=== PATIENT | female | born 1965 | race Caucasian/White ===

== ENCOUNTER 2024-01-05 09:31 | Outpatient (CLI) | payer OTHER, SELFPAY ==
--- OUTSIDE RECORDS SUMMARY | 2024-01-05 09:42 | XMS_ITS | Clinical Summary ---
Author Organization [facility] Address [place], [place] [address] Care Team Providers Care Project Management Intern Name Role Phone [facility] - Primary Ca re Provider Allergies No known active allergies Medications Medication Sig Dispensed Refills Start Date End Date Status albuterol HFA (PRO-AIR,VENTOLIN,PROVEN TIL) 90 mcg/actuation inhaler Inhale 2 Puffs by mouth 4 times daily if needed. Active multivitamin (MVI) tabletIndications:vitami n deficiency prevention Take 1 tablet by mouth once daily. Indications: VITAMIN DEFICIENCY PREVENTION Active LORazepam (ATIVAN) 0.5 mg tab Take 0.5 mg by mouth every 8 hours if needed. Active DULoxetine (CYMBALTA) 30 mg Delayed-release capsuleIndications:gener alized anxiety disorder Take 60 mg by mouth once daily. Indications: Generalized Anxiety Disorder Active ondansetron (ZOFRAN, HYDROCHLORIDE,) 4 mg tablet Take 4 mg by mouth every 8 hours if needed for Nausea/Vomiting. Active linaclotide (LINZESS) 145 mcg cap capsuleIndications:const ipation predominant irritable bowel syndrome Take 145 mcg by mouth before breakfast. Indications: Constipation Predominant Irritable Bowel Syndrome Active HYDROcodone-acetaminophe n, 5-325 mg, (NORCO) per tabletIndications:Post-o p pain Take 1 to 2 tablets by mouth every 4 hours if needed for Pain Max acetaminophen dose: 4000 mg in 24 hrs. 45 tablet 7 Active ondansetron (ZOFRAN ODT) [address] 2 tablets on the tongue every 8 hours if needed. 20 tablet 1 7 Active lisinopril (PRINIVIL; ZESTRIL) 10 mg tablet Take 1 tablet by mouth once daily. 0 8 Active rosuvastatin (CRESTOR) 20 mg tabletIndications:Pure hypercholesterolemia TAKE ONE TABLET BY MOUTH ONCE DAILY AT BEDTIME 90 tablet 2 0 Active ondansetron (ZOFRAN ODT) 4 mg disintegrating tabletIndications:Nausea Place 1 Tablet (4 mg) on the tongue 2 times daily. 5 Tablet 1 Active Active Problems Problem Noted Date Diagnosed Date Pelvic kidney 05/11/2021 Branch retinal vein occlusio n with retinal neovascularization 10/23/2020 Vitreous hemorrhage 10/23/2020 Dyspnea on exertion 04/10/2018 Hyperlipidemia 04/10/2018 Mitral valve insufficiency 04/10/2018 Primary hypertension 04/10/2018 Tobacco dependence syndrome 04/10/2018 Acquired absence of both cervix and uterus 04/15 Overview: Extensive adenomyosis, multiple fibroids, largest 6.5 cm, benign cervix Fibroids, intramural 04/01/2014 Menorrhagia 03/25/2014 Social History Tobacco Use Types Packs/Day Years Used Date Smoking Tobacco: Light Smoker Cigarettes Last attempted t o quit: 03/12/2013 Smokeless Tobacco: Never Tobacco Cessation:Counseling Given: Yes Comments:Occasional Alcohol Use Standard Drinks/Week Comments No 0 (1 standard drink = 0.6 oz pur e alcohol) 0-1 per year Sex and Gender Information Value Date Recorded Sex Assigned at Not on file Gender Identity Not on file Sexual Orientation Not on file Obstetrics History Last Filed Vital Signs Vital Sign Reading Time Taken Comments Blood Pressure 149/65 05/14/2021 6:00 PM CREATIVE SERVICES PRODUCER Pulse 91 05/14/2021 6:00 PM CREATIVE SERVICES PRODUCER Temperature 36.7 ??C (98 ??F) 05/14/2021 4:40 PM CRE[employer]IVE SERVICES PRODUCER Respiratory Rate 18 05/14/2021 4:40 PM CREATIVE SERVICES PRODUCER Oxygen Saturation 97% 05/14/2021 6:00 PM CREATIVE SERVICES PRODUCER Inhaled Oxygen Concentration - - Weight 61.2 kg (135 lb) 05/14/2021 4:40 PM CREATIVE SERVICES PRODUCER Height 175.3 cm (5' 9) 05/14/2021 4:40 PM CREATIVE SERVICES PRODUCER Body Mass Index 19.94 05/14/2021 4:40 PM CREATIVE SERVICES PRODUCER Plan of Treatment Health Maintenance Due Date Last Done Comments Tdap 1977 Depression screening for age 12+ 1978 HIV for age 15-65 1981 Hepatitis C screening for ag e 18-79 1984 Tetanus booster 1986 Pap test for age 21-65 1987 Colonoscopy through age 75 2011 Lipids for age 45-75 2011 Mammogram for age 45-75 2011 Zoster (shingles) series for age 50+ (1 of 2) 2016 BMI (ht and wt on same day) for age 18+ 06/28/2017 06/28/2016 COVID-19 vaccine series (2022- season) 2023 04/09/2021 Influenza for age 50-64 02/11/2024 Pneumococcal series for age 6-64 Aged Out No longer eligible based on patient's age to complete this topic Medical Devices Implanted Type Area Sap Payroll Consultant Device Identifier Shelf Expiration Date Model / Serial / Lot Stent Ent Mini Steroid-Releas ing Propel Bioabsorb - [id number] Implanted:Qty: 3 on 07/22/2016 by Yonatan Crum MD at [facility] Left: [employer] 02/25/2018 [id number]# / / [id number] Description:Left frontal and left maxillary Stent Ent Mini Steroid-Releas ing [employer]orb - [id number] Implanted:Qty: 1 on 07/22/2016 by Yonatan Crum MD at [facility] Left: [employer] 11/15/2017 [id number]# / / [id number] Stent Ent Reg Steroid-Releas ing Propel Bio[employer]orb - [id number] Implanted:Qty: 1 on 07/22/2016 by Yonatan Crum MD at [facility] Left: [employer] 11/09/2017 [id number]# / / [id number] Stent Ent Mini Steroid-Releas ing Propel Bio[employer]orb - [id number] Implanted:Qty: 1 on 07/22/2016 by Yonatan Crum MD at [facility] Right: [employer] 02/25/2018 [id number]# / / [id number] Stent Ent Reg Steroid-Releas ing Propel Bio[employer]orb - [id number] Implanted:Qty: 1 on 07/22/2016 by Yonatan Crum MD at [facility] Right: [employer] 11/09/2017 [id number]# / / [id number] Explanted Type Area Sap Payroll Consultant Device Identifier Shelf Expiration Date Model / Serial / Lot Stent Ent Mini Steroid-Releas ing Propel Bio[employer]orb - [id number] Implanted:Qty: 1 Explanted:Qty: 1 on 07/22/2016 at [facility] Right: [employer] 01/19/2018 [id number]# / / [id number] Advance Directives * Full Code (Latest Code Status on File) Date Activated Date Inactivated Comments 07/22/2016 9:46 AM 07/22/2016 10:46 AM * Full Code Date Activated Date Inactivated Comments 01/01/2015 10:15 AM 01/01/2015 3:12 PM * Full Code Date Activated Date Inactivated Comments 04/01/2014 8:31 AM 04/02/2014 1:42 PM * Full Code Date Activated Date Inactivated Comments 08/30/2013 9:12 AM 08/30/2013 3:47 PM Care Teams Project Management Intern Relationship Specialty Start Date End Date [facility] - PCP - General 05/11/21
--- OUTSIDE RECORDS SUMMARY | 2024-01-05 09:43 | XMS_ITS | Clinical Summary ---
Author Organization [facility] Address [address] [place] [address] Care Team Providers Care Metal Model Maker Name Role Phone Elsewhere, Pcp Primary Care Provider Unavailabl e Source Comments Patient records contain information from all sites at [facility]. For routine questions regarding patient records, call [phone] during business hours, M-F 8:00 AM - 5:00 PM Central Time. Record requests for emergency care only can be directed to [phone] at any time.[facility] Allergies No known active allergies Medications Medication Sig Dispensed Refills Start Date End Date Status diazePAM (VALIUM) 2 mg tablet Take 2 mg by mouth as needed. 2 03/15/2018 Active multivitamin tablet Take 1 tablet by mouth daily. 09/16/2013 Active ondansetron (ZOFRAN) 4 mg tablet Take 4 mg by mouth every 6 (six) hours as needed. 1 02/16/2018 Active oxyCODONE-acetamino phen (PERCOCET) 5-325 mg per tablet Take 5-325 tablets by mouth every 4 (four) hours as needed. for pain 0 03/09/2018 Active rosuvastatin (CRESTOR) 20 mg tablet Take 20 mg by mouth daily. 03/16/2018 Active DULoxetine (CYMBALTA) [address] capsule TAKE ONE CAPSULE BY MOUTH ONCE DAILY 90 capsule 3 06/18/2018 Active albuterol 90 mcg/actuation inhaler Inhale 2 puffs 4 (four) times a day as needed for shortness of breath. Active naloxegoL (MOVANTIK) 12.5 mg tablet Take 1 tablet by mouth daily as needed. Active nortriptyline (PAMELOR) 10 mg capsule Take 1-2 capsules by mouth at bedtime. 04/15/2021 Active pregabalin (LYRICA) 75 mg capsule Take 1-2 capsules by mouth 2 (two) times a day. 03/30/2021 Active QUEtiapine (SEROquel) 25 mg tablet Take 25-50 mg by mouth at bedtime as needed. 03/30/2021 Active aspirin 81 mg chewable tablet Chew 81 mg daily. Ac tive mineral oil enema Insert 1 enema into the rectum as needed for constipation. 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 Dyspnea On Exertion 04/10/2018 Nonrheumatic Mitral Valve Insufficiency 04/10/20 18 Hyperlipidemia 04/10/2018 Hypertension Essential Primary 04/10/2018 Abuse Tobacco Smoking 04/10/2018 Hysterectomy Status Post 04/15/2014 Overview (04/10/2018): Extensive adenomyosis, multiple fibroids, largest 6.5 cm, benign cervix Acquired Absence Of Both Cervix And Uterus 04/15 Overview (11/03/2021): Extensive adenomyosis, multiple fibroids, largest 6.5 cm, benign cervix Hemorrhage Vitreous Left Encounters Date Type Department Care Team Description 11/28/2023 2:00 PM CDT - 11/28/2023 11:59 PM CDT Hospital Encounter Department of Radiology in [place], [place] [address] [place] [address] Hudson Boyle Jr., M.D. 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) (Primary Dx); Hemorrhage Vitreous Left (HCC) from Last 3 Months Immunizations Name Administration Dates Next Due SARS-COV-2 (COVID-19) - PFIZ ER (Discontinued)(12 years or older) 01/22/2021 Family History Medical History Relation Name Comments Crohn's disease Daughter Glaucoma Father Heart attack Father Hypertension Father Stroke Father Heart attack Mother Lung cancer Mother Pulmonary fibrosis Mother Rheum arthritis Mother Breast cancer Sister Cerebral palsy Son Relation Name Status Comments Daughter Father Mother Sister Son Social History Tobacco Use Types Packs/Day Years Used Date Smoking Tobacco: Some Days Cigarettes Smokeless Tobacco: Never Tobacco Cessation:Ready to Q uit: Not Asked; Counseling Given: Not Answered Alcohol Use Standard Drinks/Week Comments Yes 0 (1 standard drink = 0.6 oz pur e alcohol) rare Humiliation, Afraid, Rape, and Kick questionnair e Answer Date Recorded Within the last year, have y ou been afraid of your partner or ex-partner? No 12/20/2021 Within the last year, have y ou been humiliated or emotionally abused in other ways by your partner or ex-partner? No Within the last year, have y ou been kicked, hit, slapped, or otherwise physically hurt by your partner or ex-partner? No 12/20/2021 Within the last year, have y ou been raped or forced to have any kind of sexual activity by your partner or ex-partner? No 12/20/2021 Social Connection and Isolat ion Panel [NHANES] Answer Date Recorded In a typical week, how many times do you talk on the phone with family, friends, or neighbors? More than three times a week 12/20/2021 How often do you get togethe r with friends or relatives? Three times a week 12/20/2021 How often do you attend chur or jewish services? Never 12/20/2021 Do you belong to any clubs o r organizations such as evangelical groups, unions, fraternal or athletic groups, or school groups? No 12/20/2021 How often do you attend meet ings of the clubs or organizations you belong to? Never 12/20/2021 Are you , , di vorced, , never , or living with a partner? 12/20/2021 AUDIT-C Answer Date Recorded Q1: How often do you have a drink containing alc ohol? Monthly or less 12/20/2021 Q2: How many drinks containi ng alcohol do you have on a typical day when you are drinking? 1 or 2 12/20/2021 Q3: How often do you have si x or more drinks on one occasion? Never 12/20/2021 Overall Financial Resource Strain (CARDIA) Answe r Date Recorded How hard is it for you to pa y for the very basics like food, housing, medical care, and heating? Somewhat hard 12/20/2021 PHQ-2 Answer Date Recorded PHQ-2 Score 2 12/20/2021 [facility] - Occupational Stress Questionnaire Answer Date Recorded Do you feel stress - tense, restless, nervous, or anxious, or unable to sleep at night because your mind is troubled all the time - these days? To some extent 12/20/2021 Exercise Vital Sign Answer Date Recorde d On average, how many days pe r week do you engage in moderate to strenuous exercise (like a brisk walk)? 0 days 12/20/2021 On average, how many minutes do you engage in exercise at this level? 0 min 12/20/2021 Hunger Vital Sign Answer Date Recorded Within the past 12 months, y ou worried that your food would run out before you got the money to buy more. Never true 12/21/19 22 Within the past 12 months, t he food you bought just didn't last and you didn't have money to get more. Never true 12/20/2021 PRAPARE - Transportation Answer Date Re corded In the past 12 months, has l ack of transportation kept you from medical appointments or from getting medications? No 12/10 In the past 12 months, has l ack of transportation kept you from meetings, work, or from getting things needed for daily living? No 12/20/2021 Housing Stability Vital Sign Answer Mohan e Recorded In the last 12 months, was t here a time when you were not able to pay the mortgage or rent on time? Yes 12/20/2021 In the last 12 months, how many places have you lived? 1 12/20/2021 In the last 12 months, was t here a time when you did not have a steady place to sleep or slept in a long-term (including now)? No 12/20/2021 Nutrition Answer Date Recorded On average, how many serving s of fruits and vegetables do you eat per day (serving size is equal to 1 cup or approximately the size of a tennis ball)? 2-3 12/20/2021 Dental Answer Date Recorded Dental: Regular Dentist Yes 12/21/19 Employment Answer Date Recorded Employment status Employed but not working due t o illness or injury 12/20/2021 Education Answer Date Recorded What is the highest level of school you have completed or the highest degree you have received? Bachelor's degree (e.g., BA, AB, BS) 11/18/2020 Sex and Gender Information Value Date Recorded Sex Assigned at Female 12/20/2021 10:36 AM CDT Gender Identity Female 12/20/2021 10:36 AM CDT Sexual Orientation Straight 12/20/2021 10 :36 AM CDT Last Filed Vital Signs Vital Sign Reading Time Taken Comments Blood Pressure 128/88 12/28/2021 12:49 PM CDT Pulse 76 12/22/2021 11:10 AM CDT Temperature 37.1 ??C (98.8 ??F) 12/14/2021 1 1:58 AM CDT Respiratory Rate 20 09/13/2016 7:51 AM CDT Oxygen Saturation 98% 12/28/2021 12: 49 PM CDT Inhaled Oxygen Concentration - - Weight 57.6 kg (126 lb 15.8 oz) 022 11:07 AM CDT Height 175.2 cm (5' 8.98) 12/28/2021 1 2:49 PM CDT Body Mass Index 18.77 12/14/2021 11:58 AM CDT Plan of Treatment Health Maintenance Due Date Last Done Comments CT Colonography 1966 Cologuard 1966 FIT 1966 HIV Screening 1966 Hepatitis C Screening 1966 Office Visit for Blood Press ure Check / Re-check 1966 Tobacco Cessation counseling 1966 Pneumococcal vaccine (0-64 y ears) (1 of 2 - PCV) 1972 DTaP,Tdap,and Td Vaccines (1 - Tdap) 1985 Hepatitis B Vaccines (1 of 3 - 19+ 3-dose series) 1985 Zoster Vaccines (1 of 2) 2016 Mammogram 03/07/2017 03/07/2016, 04/02/2015, 06/28/2012, Additional history exists Creatinine Level (Kidney Fun ction Test) 11/03/2022 11/03/2021, 05/11/2021, 12/04/2017, Additional history exists Potassium Level 11/03/2022 11/03/2021, 04/14, 12/04/2017, Additional history exists Sodium Level 11/03/2022 11/03/2021, 04/14, 12/04/2017, Additional history exists Lipid (Cholesterol) Screening 12/29/2022 12/29/2017, 03/11/2016 COVID-19 Vaccine (3 - 2022-2 4 season) 2023 04/09/2021, 01/22/2021 Depression Screening (Annual PHQ-2) 06/12/2023 Colonoscopy 08/31/2023 08/30/2013 Colorectal Cancer Screening 08/31/2023 Influenza Vaccine (#1) 2024 Fasting Glucose for Diabetes Screening 11/03/2024 11/03/2021, 05/11/2021, 03/11/2016, Additional history exists Procedures Procedure Name Priority Date/Time Associated Diagnosis Comments US CAROTID BILATERAL RAD - Routine (most inpatients and all outpatients) 11/28/2023 3:22 PM CDT 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 Left: Mild, 0-49%, ICA stenosis. Heart beats at irregular intervals suggesting underlying arrhythmia, consider correlation with EKG. Narrative 11/28/2023 4:38 PM CDT EXAM: US CAROTID BILATERAL Exam performed with color and spectral Doppler analysis. COMPARISON: November 24, 2021 FINDINGS: RIGHT: Mild atheromatous plaque in the carotid bifurcation. Doppler evaluation shows no evidence of significant ICA, ECA, or CCA stenosis. Normal flow direction in the vertebral artery. LEFT: Mild atheromatous plaque in the carotid bifurcation. Doppler evaluation shows no evidence of significant ICA, ECA, or CCA stenosis. Normal flow direction in the vertebral artery. VELOCITIES (cm/sec) Right CCA *psv: 68 cm/s Right ICA psv: 83 cm/s Right ICA edv: 33 cm/s Right ECA psv: 84 cm/s Right ICA/CCA: 1.2 Left CCA *psv: 64 cm/s Left ICA psv: 70 cm/s Left ICA edv: ??32 cm/s Left ECA psv: ??84 cm/s Left ICA/CCA: 1.1 *mid/distal (non-diseased) Measurement of a carotid stenosis, if present, is based on velocity parameters that compare the residual internal carotid luminal diameter with that of the normal distal ICA in accordance with [place] Symptomatic Carotid Endarterectomy Trial (NASCET). Procedure Note Grady Bueno M.D. - 11/28/2023 EXAM: US CAROTID BILATERAL Exam performed with color and spectral Doppler analysis. COMPARISON: November 24, 2021 FINDINGS: RIGHT: Mild atheromatous plaque in the carotid bifurcation. Dopplerevaluation shows no evidence of significant ICA, ECA, or CCA stenosis.Normal flow direction in the vertebral artery. LEFT: Mild atheromatous plaque in the carotid bifurcation. Dopplerevaluation shows no evidence of significant ICA, ECA, or CCA stenosis.Normal flow direction in the vertebral artery. VELOCITIES (cm/sec) Right CCA *psv: 68 cm/s Right ICA psv: 83 cm/s Right ICA edv: 33 cm/s Right ECA psv: 84 cm/s Right ICA/CCA: 1.2 Left CCA *psv: 64 cm/s Left ICA psv: 70 cm/s Left ICA edv: 32 cm/s Left ECA psv: 84 cm/s Left ICA/CCA: 1.1 *mid/distal (non-diseased) Measurement of a carotid stenosis, if present, is based on velocityparameters that compare the residual internal carotid luminal diameterwith that of the normal distal ICA in accordance with [place] AmericanSymptomatic Carotid Endarterectomy Trial (NASCET). IMPRESSION: Right: Mild, 0-49%, ICA stenosis. Left: Mild, 0-49%, ICA stenosis. Heart beats at irregular intervals suggesting underlying arrhythmia,consider correlation with EKG. Hudson Boyle Jr., M.D. IMG US PROCEDUR ES * (ABNORMAL) Comprehensive Metabolic Panel (11/03/2021 12:36 PM CDT) Potassium, P 4.8 3.6 - 5.2 mmol/L 11/03/2021 1:06 PM CDT OWAT Sodium, P 142 135 - 145 mmol/L 11/03/2021 1:06 PM CDT OWAT Chloride, P 104 98 - 107 mmol/L 11/03/2021 1:06 PM CDT OWAT Bicarbonate, P 28 22 - 29 mmol/L 11/03/2021 1:06 PM CDT OW[facility] Anion Gap, P 10 7 - 15 11/03/2021 1:06 PM CDT OWAT BUN (Blood Urea Nitrogen), P 22(H) 6 - 21 mg/dL 11/03/2021 1:06 PM CDT OWAT Creatinine 0.81 0.59 - 1.04 mg/dL 11/03/2021 1:06 PM CDT OWAT eGFR-Black/ >90 >=60 mL/min/BS A 11/03/2021 1:06 PM CDT OWAT Comment: ----ADDITIONAL INFORMATION---- Estimated GFR calculated using the 2009 CKD_EPI creatinine equation. eGFR Non-Black/ 82 >=60 mL/min/BS A 11/03/2021 1:06 PM CDT OWAT Comment: ----ADDITIONAL INFORMATION---- Estimated GFR calculated using the 2009 CKD_EPI creatinine equation. Calcium, Total, P 10.4(H) 8.6 - 10.0 mg/dL 11/03/2021 1:06 PM CDT OWAT Glucose, P 108 70 - 140 mg/dL 11/03/2021 1:06 PM CDT OWAT Protein, Total, P 7.1 6.3 - 7.9 g/dL 11/03/2021 1:06 PM CDT OWAT Albumin, P 4.5 3.5 - 5.0 g/dL 11/03/2021 1:06 PM CDT OWAT Aspartate Aminotransferase (AST), P 16 8 - 43 U/L 11/03/2021 1:06 PM CDT OWAT Alkaline Phosphatase, P 61 35 - 104 U/L 11/03/2021 1:06 PM CDT OWAT Alanine Aminotransferase (ALT), P 11 7 - 45 U/L 11/03/2021 1:06 PM CDT OWAT Bilirubin, Total, P 0.3 <=1.2 mg/dL 11/03/2021 1:06 PM CDT OWAT Blood (Blood, Venous) 11/03/2021 12:36 PM CDT 11/03/2021 12:40 PM CDT Roshni Burroughs APRN C.N.PVarinder LAB BLOOD A DD-ON [facility] [address] [place] [address], [place] OW[facility] [place] [address] [place] [address] * (ABNORMAL) Lipid Panel (12/29/2017) Triglycerides 229(A) 40 - 160 [employer]INTENAN[employer] CONSULTANT AL NON-INTERFACE D LAB Cholesterol, Total 251(A) 0 - 200 E XTERNAL NON-INTERFACE D LAB Cholesterol, HDL, S 43 35 - 70 EXTERNAL NON-INTERFACE D LAB LDL Cholesterol 162 EXTE RNAL NON-INTERFACE D LAB Blood (Blood, Venous) Ordering Provider External M.DVarinder LAB BLOO D NON ADD-ON EXTERNAL NON-INTERFACED LAB [address] [place] [address] * BI Breast Screening Bilateral (03/07/2016 2:28 PM CDT) Anatomical Region Laterality Modality Breast Bilateral Mammography 03/07/2016 2:28 PM CDT Addenda Addendum by ProviderJared M.D. on 03/07/2016 2:28 PM CDT RAD^^^OW [place] Mammo Self Requested w ??CADD 03/07/2016 14:28:01 Impressions 03/07/2016 3:50 PM CDT Negative. No mammographic findings of malignancy. RECOMMENDATIONS: Annual screening mammography. BI-RADS ASSESSMENT: CODE: 1-NEGATIVE Full field digital mammography is used and Computer Aided Detection is performed on the digital mammogram images. LETTER SENT: L1/2 - negative screen, dense breasts Narrative 03/07/2016 3:50 PM CDT EXAM: [place] Mammo Self Requested w/ CADD INDICATION: Screening. COMPARISON: Prior examination(s) are available for comparison. DENSITY: c. The breast(s) are heterogeneously dense, which may obscure small masses. FINDINGS: No findings of malignancy. No significant change since prior exams. Procedure Note Rosalva Quijano M.D. / ProviderJared M.D. - 10/15/2016 EXAM: [place] Mammo Self Requested w/ CADD INDICATION: Screening. COMPARISON: Prior examination(s) are available for comparison. DENSITY: c. The breast(s) are heterogeneously dense, which may obscure small masses. FINDINGS: No findings of malignancy. No significant change since prior exams. IMPRESSION: Negative. No mammographic findings of malignancy. RECOMMENDATIONS: Annual screening mammography. BI-RADS ASSESSMENT: CODE: 1-NEGATIVE Full field digital mammography is used and Computer Aided Detection is performed on the digital mammogram images. LETTER SENT: L1/2 - negative screen, dense breasts Yessi Huynh(R), RTariq(R)(M) IMG BI PROCEDURES from Last 3 Months or Most Recently Relevant to Health Maintenance Care Teams Metal Model Maker Relationship Specialty Start Date End Date Elsewhere, Pcp PCP - General Internal Medicine 09/25/18
--- OUTSIDE RECORDS SUMMARY | 2024-01-05 09:43 | XMS_ITS ---
Author Organization [facility] Address [address] [place] [address] Care Team Providers Care University Teacher Name Role Phone Unavailable Unavailable Unavailable Surgery Details Not on file Complications Check Surgery Details section. Procedure Estimated Blood Loss Check Surgery Details section. Procedure Findings Check Surgery Details section. Procedure Specimens Taken Check Surgery Details section.
--- OUTSIDE RECORDS SUMMARY | 2024-01-05 09:43 | XMS_ITS | Encounter Summary ---
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 [address] [place] [address] [facility] Region Referral ID Status Reason Start Date Expiration Date Visits Re quested Visits Authorized [id number] Closed 11/27/2023 11/26/2024 1 1 Encounter Details Date Type Department Care Team (Latest Contact Info) Description 11/28/2023 2:00 PM CDT - 11/28/2023 11:59 PM CDT Hospital Encounter Department of Radiology in [place], [place] [address] [place] [address] Hudson Boyle Jr., M.D. 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 Never 12/20/2021 Do you belong to any clubs o r organizations such as latter-day groups, unions, fraternal or athletic groups, or [...] Answer Date Recorded PHQ-2 Score 2 12/20/2021 [facility] - [...] place to sleep or slept in a retirement (including now)? No 12/20/2021 Nutrition Answer Date [...] Orientation Straight 12/20/2021 10 :36 AM CDT documented as of this encounter Medications at Time of Discharge Medication Sig Dispensed Refills Start Date End Date albuterol 90 mcg/actuation inhaler Inhale 2 puffs 4 (four) times a day as needed for shortness of breath. aspirin 81 mg chewable tablet Chew 81 mg daily. diazePAM (VALIUM) 2 mg tablet Take 2 mg by mouth as needed. 2 03/15/2018 DULoxetine (CYMBALTA) [address] capsule TAKE ONE CAPSULE BY MOUTH ONCE DAILY 90 capsule 3 06/18/2018 lisinopriL (PRINIVIL,ZESTRIL) 2.5 mg tablet TAKE ONE TABLET BY MOUTH ONCE DAILY 90 tablet 06/20/2022 mineral oil enema Insert 1 enema into the rectum as needed for constipation. multivitamin tablet Take 1 tablet by mouth daily. 09/16/2013 naloxegoL (MOVANTIK) 12.5 mg tablet Take 1 tablet by mouth daily as needed. nortriptyline (PAMELOR) 10 mg capsule Take 1-2 capsules by mouth at bedtime. 04/15/2021 ondansetron (ZOFRAN) 4 mg tablet Take 4 mg by mouth every 6 (six) hours as needed. 1 02/16/2018 oxyCODONE-acetaminophen (PERCOCET) 5-325 mg per tablet Take 5-325 tablets by mouth every 4 (four) hours as needed. for pain 0 03/09/2018 pregabalin (LYRICA) 75 mg capsule Take 1-2 capsules by mouth 2 (two) times a day. 03/30/2021 QUEtiapine (SEROquel) 25 mg tablet Take 25-50 mg by mouth at bedtime as needed. 03/30/2021 rosuvastatin (CRESTOR) 20 mg tablet Take 20 mg by mouth daily. 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 Procedure Note [...] Boyle Jr., M.D. 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
--- OUTSIDE RECORDS SUMMARY | 2024-01-05 09:43 | XMS_ITS | Continuity of Care Document ---
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 Name Role Phone Herrera Gustabo CRUZel Unavailable Unavailable Allergies, Adverse Reactions, Alerts Substance Reaction Status Criticality pollen extracts Active No Informati on Medications Medication Instructions Dosage Effective Dates (start - stop) Status Comments Percocet 5 mg-325 mg tablet take 1 tablet by ORAL route every 4 - 6 hours as needed for chronic pain; max 6/day for for chronic pain - Active May fill today QUETIAPINE FUMARATE 25MG TABS TAKE ONE TO TWO TABLETS BY MOUTH AT BEDTIME - Active CO Q-10 (unknown strength) Not Available - Active lisinopril 10 mg tablet take 1 tablet by oral route every day 10 MG - Active Cymbalta 30 mg capsule,delayed release take 1 capsule by oral route every day 30 MG - Active rosuvastatin 20 mg tablet take 1 tablet by oral route every day 20 MG - Active diazepam 2 mg tablet take 1 tablet by oral route 2 times every day 2 MG - Active Lyrica 75 mg capsule take 1 capsule by oral route 2 times every day 75 MG - Active aspirin 81 mg chewable tablet chew 1 tablet by oral route every day 81 MG - Active ondansetron HCl 4 mg tablet take 1 tablet by oral route every day as needed 4 MG - Active Percocet 5 mg-325 mg tablet take 1 - 2 tablet by ORAL route every 4 - 6 hours as needed for chronic pain; max 6/day - Maximilian-19-2024 No Longer Active Supplemental Rx Procedures Procedure Date OFFICE VISIT, EST TELEMEDICINE OFFICE VISIT, EST TELEMEDICINE OFFICE/OUTPATIENT VISIT, EST Drug Urine Toxology With Chromatography Drug test def 1-7 classes OFFICE VISIT, EST TELEMEDICINE OFFICE VISIT, EST TELEMEDICINE OFFICE/OUTPATIENT VISIT, EST Drug test def 8-14 classes Drug Urine Toxology With Chromatography OFFICE VISIT, EST TELEMEDICINE OFFICE VISIT, EST TELEMEDICINE Drug Urine Toxology With Chromatography Drug test def 8-14 classes OFFICE/OUTPATIENT VISIT, EST OFFICE VISIT, EST TELEMEDICINE OFFICE VISIT, EST TELEMEDICINE OFFICE VISIT, EST TELEMEDICINE Drug Urine Toxology With Chromatography Drug test def 8-14 classes OFFICE/OUTPATIENT VISIT, EST OFFICE VISIT, EST TELEMEDICINE Foll-up eval q3mo opiod tx OFFICE VISIT, EST TELEMEDICINE Drug test def 8-14 classes Drug Urine Toxology With Chromatography Foll-up eval q3mo opiod tx OFFICE/OUTPATIENT VISIT, EST Foll-up eval q3mo opiod tx OFFICE VISIT, EST TELEMEDICINE Foll-up eval q3mo opiod tx OFFICE VISIT, EST TELEMEDICINE Drug Urine Toxology With Chromatography Drug test def 8-14 classes Foll-up eval q3mo opiod tx OFFICE/OUTPATIENT VISIT, EST Foll-up eval q3mo opiod tx OFFICE VISIT, EST TELEMEDICINE Foll-up eval q3mo opiod tx OFFICE VISIT, EST TELEMEDICINE Foll-up eval q3mo opiod tx OFFICE VISIT, EST TELEMEDICINE OFFICE VISIT, EST TELEMEDICINE Foll-up eval q3mo opiod tx OFFICE/OUTPATIENT VISIT, EST Drug Urine Toxology With Chromatography Drug test def 8-14 classes Foll-up eval q3mo opiod tx OFFICE VISIT, EST TELEMEDICINE Foll-up eval q3mo opiod tx OFFICE VISIT, EST TELEMEDICINE Foll-up eval q3mo opiod tx OFFICE VISIT, EST TELEMEDICINE Foll-up eval q3mo opiod tx OFFICE VISIT, EST TELEMEDICINE Foll-up eval q3mo opiod tx OFFICE VISIT, EST TELEMEDICINE Foll-up eval q3mo opiod tx OFFICE VISIT, EST TELEMEDICINE Foll-up eval q3mo opiod tx OFFICE VISIT, EST TELEMEDICINE Foll-up eval q3mo opiod tx OFFICE VISIT, EST TELEMEDICINE Foll-up eval q3mo opiod tx OFFICE VISIT, EST TELEMEDICINE OFFICE/OUTPATIENT VISIT, EST Foll-up eval q3mo opiod tx OFFICE VISIT, EST TELEMEDICINE Foll-up eval q3mo opiod tx OFFICE VISIT, EST TELEMEDICINE Disabilty Reports Forms Foll-up eval q3mo opiod tx OFFICE/OUTPATIENT VISIT, EST Drug Urine Toxology With Chromatography Drug test def 8-14 classes Foll-up eval q3mo opiod tx OFFICE/OUTPATIENT VISIT, EST Drug Urine Toxology With Chromatography Drug test def 1-7 classes Foll-up eval q3mo opiod tx OFFICE/OUTPATIENT VISIT, EST Foll-up eval q3mo opiod tx OFFICE/OUTPATIENT VISIT, EST Foll-up eval q3mo opiod tx OFFICE/OUTPATIENT VISIT, EST Drug Urine Toxology With Chromatography OFFICE/OUTPATIENT VISIT, EST Foll-up eval q3mo opiod tx OFFICE VISIT, EST TELEMEDICINE 21 PT EVAL MOD COMPLEX 30 MIN SELF CARE MNGMENT TRAINING Psych Dx Eval OFFICE VISIT, EST TELEMEDICINE Foll-up eval q3mo opiod tx Foll-up eval q3mo opiod tx OFFICE VISIT, EST TELEMEDICINE OFFICE VISIT, EST TELEMEDICINE 21 Foll-up eval q3mo opiod tx Foll-up eval q3mo opiod tx OFFICE VISIT, EST TELEMEDICINE 21 OFFICE VISIT, EST TELEMEDICINE 21 Foll-up eval q3mo opiod tx OFFICE VISIT, EST TELEMEDICINE 20 Foll-up eval q3mo opiod tx OFFICE VISIT, EST TELEMEDICINE 20 Foll-up eval q3mo opiod tx Foll-up eval q3mo opiod tx OFFICE VISIT, EST TELEMEDICINE OFFICE VISIT, EST TELEMEDICINE 20 Foll-up eval q3mo opiod tx OFFICE VISIT, EST TELEMEDICINE 20 Foll-up eval q3mo opiod tx OFFICE VISIT, EST TELEMEDICINE 20 Foll-up eval q3mo opiod tx Foll-up eval q3mo opiod tx OFFICE VISIT, EST TELEMEDICINE Foll-up eval q3mo opiod tx OFFICE VISIT, EST TELEMEDICINE Foll-up eval q3mo opiod tx OFFICE VISIT, EST TELEMEDICINE Foll-up eval q3mo opiod tx OFFICE VISIT, EST TELEMEDICINE Foll-up eval q3mo opiod tx OFFICE/OUTPATIENT VISIT, EST Foll-up eval q3mo opiod tx OFFICE/OUTPATIENT VISIT, EST OFFICE/OUTPATIENT VISIT, EST Foll-up eval q3mo opiod tx OFFICE/OUTPATIENT VISIT, EST Foll-up eval q3mo opiod tx OFFICE/OUTPATIENT VISIT, EST OFFICE/OUTPATIENT VISIT, EST Drug test def 22+ classes Drug Urine Toxology With Chromatography PT-FOCUSED HLTH RISK ASSMT OFFICE CONSULTATION Drug test def 22+ classes Drug Urine Toxology With Chromatography Advance Directives Directive Yes / No Effective Date File Name No Information Encounters Encounter Description Practice Location Reason(s) For Visit Diagnoses Date Provider Providers Copied on Encounter [facility], [address] [place] [address], [id number] , [place] tel:[phone] [facility] [place] No Information 4 Herrerajuan Baird. [address] [facility] [address], [id number], [place]. tel:[phone] [facility], [address] [place], [place], [id number] , [place] tel:[phone] Telehealth No Information 4 Sharon Baird. [address] [facility] [address] [address], [id number], [place]. tel:[phone] OFFICE VISIT, EST TELEMEDICINE [facility], [address] [place], [place], [id number] , [place] tel:[phone] [facility] Neck Pain (chief complaint) Insomnia, unspecifiedChr onic pain syndromeRadicu lopathy, cervical regionPostlami nectomy syndrome, not elsewhere classifiedLong term (current) use of opiate analgesic 4 Herrerajuan Baird. [address] [place] [address] [address], [place], [id number], [place]. tel:[phone] OFFICE VISIT, [facility] TELEMEDICINE [facility], [address] [place] [address], [id number] , [place] tel:[phone] [facility] Neck Pain (chief complaint) Insomnia, unspecifiedChr onic pain syndromeRadicu lopathy, cervical regionPostlami nectomy syndrome, not elsewhere classifiedLong term (current) use of opiate analgesic 4 Herrera Oli. [address] [place] [address] [address], [place], [id number], [place]. tel:[phone] Referring Provider: Ortiz Lambert, [address] [place] [address], [id number]. tel:[phone] OFFICE/OUTPAT IENT VISIT, [facility], [address] [place] [address], [id number] , [place] [phone] [facility] Neck Pain (chief complaint) Insomnia, unspecifiedChr onic pain syndromeRadicu lopathy, cervical regionPostlami nectomy syndrome, not elsewhere classifiedLong term (current) use of opiate analgesicEncou nter for therapeutic drug level monitoring 4 Sharon Baird. [address] [place] [address] [address], [place], [id number], [place]. tel:[phone] Referring Provider: Ortiz Lambert, [address] [place] [address], [id number]. tel:[phone] OFFICE VISIT, [facility], [address] [place] [address], [id number] , [place] tel:[phone] [facility] Insomnia, unspecifiedChr onic pain syndromeRadicu lopathy, cervical regionPostlami nectomy syndrome, not elsewhere classifiedLong term (current) use of opiate analgesic 4 Sharon Baird. [address], [id number], [place]. tel:[phone] OFFICE VISIT, EST TELEMEDICINE [facility], [address] [place] [address], [id number] , [place] tel:[phone] [facility] Neck Pain (chief complaint) Insomnia, unspecifiedChr onic pain syndromeRadicu lopathy, cervical regionPostlami nectomy syndrome, not elsewhere classifiedLong term (current) use of opiate analgesic 4 Sharon Baird. [address] [place] [address], [id number], [place]. tel:[phone] OFFICE/OUTPAT IENT VISIT, [facility], [address] [place] [address], [id number] , [place] tel:[phone] [facility] Neck Pain (chief complaint) Insomnia, unspecifiedChr onic pain syndromeRadicu lopathy, cervical regionPostlami nectomy syndrome, not elsewhere classifiedLong term (current) use of opiate analgesicEncou nter for therapeutic drug level monitoring 4 Herrera Oli. [address] [place] [address], [id number], [place]. tel:[phone] Referring Provider: Ortiz Lambert, [address] [place] [address], [id number]. tel:[phone] OFFICE VISIT, EST TELEMEDICINE [facility], [address] [place] [address], [id number] , [place] [phone] [facility] Neck Pain (chief complaint) Insomnia, unspecifiedChr onic pain syndromeRadicu lopathy, cervical regionPostlami nectomy syndrome, not elsewhere classifiedLong term (current) use of opiate analgesic 3 Sharon Baird. [address] [place] [address], [id number], [place]. tel:[phone] OFFICE VISIT, [facility] TELEMEDICINE [facility], [address] [place] [address], [id number] , [place] tel: [phone] [facility] Neck Pain (chief complaint) Insomnia, unspecifiedChr onic pain syndromeRadicu lopathy, cervical regionPostlami nectomy syndrome, not elsewhere classifiedLong term (current) use of opiate analgesic Nov-2 3 Herrera Oli. [facility], [id number], [place]. tel:[phone] [facility], [address] [place] [address], [id number] , [place] tel: [phone] [facility] No Information Nov-0 3 Herrera Loi. [address] [place] [address], [id number], [place]. tel:[phone] OFFICE/OUTPAT IENT VISIT, [facility], [address] [place] [address], [id number] , [place] tel: [phone] [facility] Neck Pain (chief complaint) Insomnia, unspecifiedChr onic pain syndromeRadicu lopathy, cervical regionPostlami nectomy syndrome, not elsewhere classifiedLong term (current) use of opiate analgesic Nov-0 3 Herrera Oli. [address] [place] [address], [id number], [place]. tel:[phone] Referring Provider: Ortiz Lambert, [address] [place], [address]. [phone] OFFICE VISIT, EST TELEMEDICINE [facility], [address] [place] [address], [id number] , [place] tel:[phone] [facility] Neck Pain (chief complaint) Insomnia, unspecifiedChr onic pain syndromeRadicu lopathy, cervical regionPostlami nectomy syndrome, not elsewhere classifiedLong term (current) use of opiate analgesic Sep-2 3 Sharon Baird. [address] [place] [address], [place], [id number], [place]. tel:[phone] OFFICE VISIT, [facility] TELEMEDICINE [facility], [address] [place] [address], [id number] , [place] tel:[phone] [facility] Neck Pain (chief complaint) Insomnia, unspecifiedChr onic pain syndromeRadicu lopathy, cervical regionPostlami nectomy syndrome, not elsewhere classifiedLong term (current) use of opiate analgesic 3 Sharon Baird. [address], [id number], [place]. tel:[phone] OFFICE VISIT, EST TELEMEDICINE [facility], [address] [place] [address], [id number] , [place] tel:[phone] [facility] Neck Pain (chief complaint) Insomnia, unspecifiedChr onic pain syndromeRadicu lopathy, cervical regionPostlami nectomy syndrome, not elsewhere classifiedLong term (current) use of opiate analgesic 3 Herrera Oli. [address] [place] [address], [id number], [place]. tel:[phone] [facility], [address] [place] [address], [id number] , [place] tel: [phone] [facility] No Information 3 Herrerajuan Baird. [address] [place] [address] [address], [place], [id number], [place]. tel:[phone] OFFICE/OUTPAT IENT VISIT, [facility], [address] [place] [address], [id number] , [place] tel:[phone] [facility] Neck Pain (chief complaint) Insomnia, unspecifiedChr onic pain syndromeRadicu lopathy, cervical regionPostlami nectomy syndrome, not elsewhere classifiedLong term (current) use of opiate analgesicEncou nter for therapeutic drug level monitoring 3 Sharon Baird. [address] [place] [address], [id number], [place]. tel:[phone] Referring Provider: Ortiz Lambert, [address] [place] [address], [id number]. tel:[phone] OFFICE VISIT, [facility] TELEMEDICINE [facility], [address] [place] [address], [id number] , [place] tel: [phone] [facility] Neck Pain (chief complaint) Insomnia, unspecifiedChr onic pain syndromeRadicu lopathy, cervical regionPostlami nectomy syndrome, not elsewhere classifiedLong term (current) use of opiate analgesic Júnior-0 3 Sharon Baird. [address] [place] [address], [id number], [place]. tel:[phone] OFFICE VISIT, [facility], [address] [place] [address], [id number] , [place] tel: [phone] [facility] Neck Pain (chief complaint) Insomnia, unspecifiedChr onic pain syndromeRadicu lopathy, cervical regionPostlami nectomy syndrome, not elsewhere classifiedLong term (current) use of opiate analgesic October-0 3 Sharon Baird. [address] [place] [address], [id number], [place]. tel:[phone] [facility], [address] [place] [address], [id number] , [place] tel: [phone] [facility] No Information Apr-0 3 Sharon Baird. [address] [place] [address], [id number], [place]. tel:[phone] OFFICE/OUTPAT IENT VISIT, [facility], [address] [place] [address], [id number] , [place] tel: [phone] [facility] Neck Pain (chief complaint) Chronic pain syndromeRadicu lopathy, cervical regionInsomnia , unspecifiedPos tlaminectomy syndrome, not elsewhere classifiedLong term (current) use of opiate analgesic Apr-0 6-202 3 Sharon Baird. [address] [place] [address], [id number], [place]. tel:[phone] Referring Provider: Ortiz Lambert, [address] [place] [address], [id number]. tel:[phone] OFFICE VISIT, [facility], [address] [place] [address], [id number] , [place] tel: [phone] [facility] Neck Pain (chief complaint) Insomnia, unspecifiedChr onic pain syndromeRadicu lopathy, cervical regionPostlami nectomy syndrome, not elsewhere classifiedLong term (current) use of opiate analgesic Jul-2 3 Sharon Baird. [address] [place] [address], [id number], [place]. tel:[phone] OFFICE VISIT, [facility], [address] [place] [address], [id number] , [place] tel: [phone] [facility] Neck Pain (chief complaint) Insomnia, unspecifiedChr onic pain syndromeRadicu lopathy, cervical regionPostlami nectomy syndrome, not elsewhere classifiedLong term (current) use of opiate analgesic Jul-0 3 Sharon Baird. [address] [place] [address], [id number], [place]. tel:[phone] [facility], [address] [place] [address], [id number] , [place] tel: [phone] [facility] No Information 3 Sharon Baird. [address] [place] [address], [id number], [place]. tel:[phone] OFFICE/OUTPAT IENT VISIT, [facility], [address] [place] [address], [id number] , [place] tel: [phone] [facility] Neck Pain (chief complaint) Insomnia, unspecifiedChr onic pain syndromeRadicu lopathy, cervical regionPostlami nectomy syndrome, not elsewhere classifiedLong term (current) use of opiate analgesicEnc nter for therapeutic drug level monitoring 0 3 Sharon Baird. [address] [place] [address], [id number], [place]. tel:[phone] Referring Provider: Ortiz Lambert, [address] [place] [address], [id number]. tel:[phone] OFFICE VISIT, EST TELEMEDICINE [facility], [address] [place] [address], [id number] , [place] [phone] [facility] Neck Pain (chief complaint) Insomnia, unspecifiedChr onic pain syndromeRadicu lopathy, cervical regionPostlami nectomy syndrome, not elsewhere classifiedLong term (current) use of opiate analgesic 2 Sharon Montejoel. [address] [place] [address], [id number], [place]. tel:[phone] Referring Provider: Ortiz Lambert, [address] [place] [address], [id number]. tel:[phone] OFFICE VISIT, EST TELEMEDICINE [facility], [address] [place] [address], [id number] , [place] tel:[phone] [facility] Neck Pain (chief complaint) Insomnia, unspecifiedChr onic pain syndromeRadicu lopathy, cervical regionPostlami nectomy syndrome, not elsewhere classifiedLong term (current) use of opiate analgesic 0 2 Herrerajuan Baird. [address] [place] [address], [id number], [place]. tel:[phone] OFFICE VISIT, EST TELEMEDICINE [facility], [address] [place] [address], [id number] , [place] tel:[phone] [facility] Neck Pain (chief complaint) Insomnia, unspecifiedChr onic pain syndromeRadicu lopathy, cervical regionPostlami nectomy syndrome, not elsewhere classifiedLong term (current) use of opiate analgesic 2 Tisha Cadena. [address] [place] [address], [id number], [place]. tel:[phone] OFFICE VISIT, EST TELEMEDICINE [facility], [address] [place] [address], [id number] , [place] tel:[phone] [facility] Neck Pain (chief complaint) Insomnia, unspecifiedChr onic pain syndromeRadicu lopathy, cervical regionPostlami nectomy syndrome, not elsewhere classifiedLong term (current) use of opiate analgesic Sep-3 2 Sharon Baird. [address] [place] [address] [address] [address], [place], [id number], [place]. tel:[phone] OFFICE/OUTPAT IENT VISIT, [facility], [address] [place] [address], [id number] , [place] tel:[phone] [facility] Neck Pain (chief complaint) Insomnia, unspecifiedRad iculopathy, cervical regionPostlami nectomy syndrome, not elsewhere classifiedLong term (current) use of opiate analgesicChron ic pain syndrome 2 Sharon Baird. [address] [place] [address] [address], [place], [id number], [place]. tel:[phone] Referring Provider: Ortiz Lambert, [address] [place] [address], [id number]. [phone] [facility], [address] [place] [address], [id number] , [place] tel:[phone] [facility] No Information 2 Sharon Baird. [address] [place] [address] [address] [address], [place], [id number], [place]. tel:[phone] OFFICE VISIT, [facility] TELEMEDICINE [facility], [address] [place] [address], [id number] , [place] tel:[phone] [facility] Neck Pain (chief complaint) Insomnia, unspecifiedRad iculopathy, cervical regionPostlami nectomy syndrome, not elsewhere classifiedLong term (current) use of opiate analgesic 2 Sharon Baird. [address] [place] [address] 11 [facility] [address], [place], [id number], [place]. tel:[phone] Referring Provider: Ortiz Lambert, [address] [place] [address], [id number]. tel:[phone] OFFICE VISIT, EST TELEMEDICINE [facility], [address] [place] [address], [id number] , [place] [phone] [facility] Neck Pain (chief complaint) Insomnia, unspecifiedOth er spondylosis with radiculopathy, cervical regionRadiculo luis, cervical regionPostlami nectomy syndrome, not elsewhere classifiedLong term (current) use of opiate analgesic Dec-0 2 Sharon Baird. [address] [place] [address], [id number], [place]. tel:[phone] Referring Provider: Ortiz Lambert, [address] [place] [address], [id number]. tel:[phone] OFFICE VISIT, EST TELEMEDICINE [facility], [address] [place] [address], [id number] , [place] tel:[phone] [facility] Neck Pain (chief complaint) Insomnia, unspecifiedOth er spondylosis with radiculopathy, cervical regionRadiculo luis, cervical regionPostlami nectomy syndrome, not elsewhere classifiedLong term (current) use of opiate analgesic 0 2 Herrerajuan Baird. [address] [place] [address], [id number], [place]. tel:[phone] Referring Provider: Ortiz Lambert, [address] [place] [address], [id number]. tel:[phone] OFFICE VISIT, EST TELEMEDICINE [facility], [address] [place] [address], [id number] , [place] tel:[phone] [facility] Neck Pain (chief complaint) Insomnia, unspecifiedOth er spondylosis with radiculopathy, cervical regionRadiculo luis, cervical regionPostlami nectomy syndrome, not elsewhere classifiedLong term (current) use of opiate analgesic October-0 2 Herrerajuan Baird. [address] [place] [address], [id number], [place]. tel:[phone] OFFICE VISIT, EST TELEMEDICINE [facility], [address] [place] [address], [id number] , [place] tel: [phone] [facility] Neck Pain (chief complaint) Other spondylosis with radiculopathy, cervical regionRadiculo luis, cervical regionInsomnia , unspecifiedPos tlaminectomy syndrome, not elsewhere classifiedLong term (current) use of opiate analgesic Sep-0 2 Herrerajuan Baird. [address] [place] [address], [id number], [place]. tel:[phone] OFFICE VISIT, EST TELEMEDICINE [facility], [address] [place] [address], [id number] , [place] tel: [phone] [facility] Neck Pain (chief complaint) Postlaminectom y syndrome, not elsewhere classifiedRadi culopathy, cervical regionInsomnia , unspecifiedOth er spondylosis with radiculopathy, cervical regionLong term (current) use of opiate analgesic 2 Sharon Baird. [address] [place] [address], [id number], [place]. tel:[phone] OFFICE VISIT, EST [facility], [address] [place] [address], [id number] , [place] tel: [phone] [facility] Neck Pain (chief complaint) Postlaminectom y syndrome, not elsewhere classifiedRadi culopathy, cervical regionInsomnia , unspecifiedOth er spondylosis with radiculopathy, cervical regionLong term (current) use of opiate analgesic 2 Herrerajuan Baird. [address] [place] [address], [id number], [place]. tel:[phone] Referring Provider: Ortiz Lambert, [address] [place], [address]. tel:[phone] OFFICE VISIT, EST TELEMEDICINE [facility], [address] [place] [address], [id number] , [place] tel: [phone] [facility] Neck Pain (chief complaint) Postlaminectom y syndrome, not elsewhere classifiedRadi culopathy, cervical regionOther spondylosis with myelopathy, cervical regionInsomnia , unspecifiedLon g term (current) use of opiate analgesicOther spondylosis with radiculopathy, cervical region 1 Sharon Baird. [address] [place] [address] [address], [place], [id number], [place]. tel:[phone] OFFICE VISIT, [facility], [address] [place] [address], [id number] , [place] tel: [phone] [facility] Arm pain (chief complaint) Postlaminectom y syndrome, not elsewhere classifiedRadi culopathy, cervical regionOther spondylosis with myelopathy, cervical regionInsomnia , unspecifiedLon g term (current) use of opiate analgesic 1 Sharon Baird. [address] [place] [address] [address], [place], [id number], [place]. tel:[phone] OFFICE/OUTPAT IENT VISIT, [facility], [address] [place] [address], [id number] , [place] tel: [phone] [facility] Neck pain (chief complaint) Other spondylosis with radiculopathy, cervical regionLow back pain, unspecifiedOth er spondylosis, cervical region 1 Dante Baird. [facility], [address], [place], [address], [place]. tel:[phone] Referring Provider: Oli Herrera, [address] [place] [address] [address], [place], [address]. tel:[phone] OFFICE VISIT, [facility], [address] [place] [address], [id number] , [place] tel:[phone] [facility] Arm pain (chief complaint) Postlaminectom y syndrome, not elsewhere classifiedRadi culopathy, cervical regionOther spondylosis with myelopathy, cervical regionInsomnia , unspecifiedLon g term (current) use of opiate analgesic 1 Herrera Oli. [address], [id number], [place]. tel:[phone] OFFICE VISIT, [facility] TELEMEDICINE [facility], [address] [place] [address], [id number] , [place] tel:[phone] [facility] Arm pain (chief complaint) Postlaminectom y syndrome, not elsewhere classifiedRadi culopathy, cervical regionOther spondylosis with myelopathy, cervical regionInsomnia , unspecifiedLon g term (current) use of opiate analgesic 1 Sharon Baird. [address] [place] [address], [id number], [place]. tel:[phone] Referring Provider: Ortiz Lambert, [address] [place] [address], [address]. tel:[phone] [facility], [address] [place] [address], [id number] , [place] tel:[phone] [facility] No Information Sep-2 1 Sharon Baird. [address] [place] [address], [id number], [place]. tel:[phone] Referring Provider: Ortiz Lambert, [address] [place] [address], [address]. tel:[phone] OFFICE/OUTPAT IENT VISIT, [facility], [address] [place] [address], [id number] , [place] tel:[phone] [facility] Arm pain (chief complaint) Other spondylosis with myelopathy, cervical regionRadiculo luis, cervical regionInsomnia , unspecifiedPos tlaminectomy syndrome, not elsewhere classifiedLong term (current) use of opiate analgesic Sep-0 1 Sharon Baird. [address] [place] [address], [id number], [place]. tel:[phone] Referring Provider: Ortiz Lambert, [address] [place] [address], [address]. tel:[phone] [facility], [address] [place] [address], [id number] , [place] tel:[phone] [facility] No Information 1 Sharon Baird. [address] [facility] [address], [place], [id number], [place]. tel:[phone] Referring Provider: Ortiz Lambert, [address] [place] [address], [address]. tel:[phone] OFFICE/OUTPAT IENT VISIT, [facility], [address] [place] [address], [id number] , [place] tel:[phone] [facility] Arm pain (chief complaint) Other spondylosis with myelopathy, cervical regionRadiculo luis, cervical regionInsomnia , unspecifiedPos tlaminectomy syndrome, not elsewhere classifiedLong term (current) use of opiate analgesicEncou nter for therapeutic drug level monitoring 1 Sharon Baird. [address] [facility] [address], [place], [id number], [place]. tel:[phone] Referring Provider: Ortiz Lambert, [address] [place] [address], [address]. tel:[phone] [facility], [address] [place] [address], [id number] , [place] tel:[phone] [facility] Other spondylosis with myelopathy, cervical regionRadiculo luis, cervical region 1 Sharon Baird. [address] [facility] [address], [place], [id number], [place]. tel:[phone] Referring Provider: Ortiz Lambert, [address] [place] [address], [address]. tel:[phone] OFFICE/OUTPAT IENT VISIT, [facility], [address] [place] [address], [id number] , [place] tel:[phone] [facility] Arm pain (chief complaint) Radiculopathy, cervical regionInsomnia , unspecifiedPos tlaminectomy syndrome, not elsewhere classifiedLong term (current) use of opiate analgesic 1 Sharon Baird. [address] [facility] [address], [place], [id number], [place]. tel:[phone] Referring Provider: Ortiz Lambert, [address] [place] [address], [address]. tel:[phone] OFFICE/OUTPAT IENT VISIT, [facility], [address] [place] [address], [id number] , [place] tel:[phone] [facility] Arm pain (chief complaint) Radiculopathy, cervical regionInsomnia , unspecifiedPos tlaminectomy syndrome, not elsewhere classifiedLong term (current) use of opiate analgesic 1 Sharon Baird. [address] [place] [address], [id number], [place]. tel:[phone] Referring Provider: Ortiz Lambert, [address] [place] [address], [address]. tel:[phone] OFFICE/OUTPAT IENT VISIT, [facility], [address] [place] [address], [id number] , [place] tel:[phone] [facility] Arm pain (chief complaint) Radiculopathy, cervical regionInsomnia , unspecifiedPos tlaminectomy syndrome, not elsewhere classifiedLong term (current) use of opiate analgesic 1 Sharon Baird. [address] [place] [address] [address], [place], [id number], [place]. tel:[phone] Referring Provider: Ortiz Lambert, [address] [place] [address], [address]. [phone] [facility], [address] [place] [address], [id number] , [place] tel:[phone] [facility] No Information 1 Sharon Baird. [address] [facility] [address], [place], [id number], [place]. tel:[phone] Referring Provider: Ortiz Lambert, [address] [place] [address], [address]. [phone] OFFICE/OUTPAT IENT VISIT, [facility], [address] [place] [address], [id number] , [place] [phone] [facility] Arm pain (chief complaint) Radiculopathy, cervical regionInsomnia , unspecifiedPos tlaminectomy syndrome, not elsewhere classifiedLong term (current) use of opiate analgesic 1 Sharon Baird. [address] [facility] 11 [facility] [address], [place], [id number], [place]. tel:[phone] Referring Provider: Ortiz Lambert, [address] [place] [address], [address]. [phone] OFFICE VISIT, [facility] TELEMEDICINE [facility], [address] [place] [address], [id number] , [place] [phone] [facility] Arm pain (chief complaint) Radiculopathy, cervical regionInsomnia , unspecifiedPos tlaminectomy syndrome, not elsewhere classifiedLong term (current) use of opiate analgesic 1 Sharon Baird. [address] [facility] 11 [facility] [address], [place], [id number], [place]. tel:[phone] Referring Provider: Ortiz Lambert, [address] [place] [address], [address]. [phone] [facility], [address] [place] [address], [id number] , [place] tel:[phone] [facility] cervicalgia (chief complaint) Radiculopathy, cervical regionPostlami nectomy syndrome, not elsewhere classified 1 Vijaya Glynn. [address] [place] [address], [id number], [place]. tel:[phone] Referring Provider: Ortiz Lambert, [address] [place] [address], [address]. tel:[phone] Psych Dx Eval [facility], [address] [place] [address], [id number] , [place] [phone] [facility] Pain disorder with related psychological factorsAnxiety disorder 0 1 Jossie Hay Sonia. [address] [place] [address], [id number], [place]. tel:[phone] Referring Provider: Ortiz Lambert, [address] [place] [address], [address]. tel:[phone] OFFICE VISIT, EST TELEMEDICINE [facility], [address] [place] [address], [id number] , [place] [phone] [facility] Arm pain (chief complaint) Radiculopathy, cervical regionInsomnia , unspecifiedPos tlaminectomy syndrome, not elsewhere classifiedLong term (current) use of opiate analgesicChron ic pain syndrome Apr-3 1 Sharon Baird. [address] [place] [address] [address], [place], [id number], [place]. tel:[phone] Referring Provider: Ortiz Lambert, [address] [place] [address], [address]. tel:[phone] OFFICE VISIT, EST [facility], [address] [place] [address], [id number] , [place] tel:[phone] [facility] Arm pain (chief complaint) Radiculopathy, cervical regionPostlami nectomy syndrome, not elsewhere classifiedInso mnia, unspecifiedLon g term (current) use of opiate analgesicChron ic pain syndrome Apr-0 - 1 Sharon Baird. [address] [place] [address] [address], [place], [place], [id number], [place]. tel:[phone] Referring Provider: Ortiz Lambert, [address] [place] [address], [address]. tel:[phone] OFFICE VISIT, EST TELEMEDICINE [facility], [address] [place] [address], [id number] , [place] tel:[phone] [facility] Arm pain (chief complaint) Radiculopathy, cervical regionPostlami nectomy syndrome, not elsewhere classifiedInso mnia, unspecifiedLon g term (current) use of opiate analgesicChron ic pain syndrome 1 Herrera Oli. [address] [facility] [address], [place], [id number], [place]. tel:[phone] Referring Provider: Ortiz Lambert, [address] [place] [address], [address]. tel:[phone] OFFICE VISIT, EST [facility], [address] [place] [address], [id number] , [place] tel:[phone] [facility] Arm pain (chief complaint) Radiculopathy, cervical regionPostlami nectomy syndrome, not elsewhere classifiedInso mnia, unspecifiedLon g term (current) use of opiate analgesicChron ic pain syndrome 1 Herrerajuan Baird. [address] [place] [address] [address], [place], [id number], [place]. tel:[phone] Referring Provider: Ortiz Lambert, [address] [place] [address], [address]. tel:[phone] OFFICE VISIT, EST [facility], [address] [place] [address], [id number] , [place] tel:[phone] [facility] Arm pain (chief complaint) Radiculopathy, cervical regionPostlami nectomy syndrome, not elsewhere classifiedInso mnia, unspecifiedLon g term (current) use of opiate analgesicChron ic pain syndrome 1 Herrera Oli. [address] [facility] [address], [place], [id number], [place]. tel:[phone] Referring Provider: Ortiz Lambert, [address] [place] [address], [address]. tel:[phone] [facility], [address] [place] [address], [id number] , [place] tel:[phone] [facility] No Information Dec-2 3- 0 Sharon Baird. [address] [place] [address], [id number], [place]. tel:[phone] OFFICE VISIT, EST TELEMEDICINE [facility], [address] [place] [address], [id number] , [place] tel: [phone] [facility] Arm pain (chief complaint) Radiculopathy, cervical regionPostlami nectomy syndrome, not elsewhere classifiedInso mnia, unspecifiedLon g term (current) use of opiate analgesicChron ic pain syndrome Dec-0 0 Herrera Oli. [address] [place] [address], [id number], [place]. tel:[phone] Referring Provider: Ortiz Lambert, [address] [place] [address], [address]. tel:[phone] OFFICE VISIT, EST TELEMEDICINE [facility], [address] [place] [address], [id number] , [place] tel:[phone] [facility] Arm pain (chief complaint) Radiculopathy, cervical regionPostlami nectomy syndrome, not elsewhere classifiedInso mnia, unspecifiedLon g term (current) use of opiate analgesicChron ic pain syndrome Nov-0 6 0 Sharon Baird. [address] [place] [address], [id number], [place]. tel:[phone] Referring Provider: Ortiz Lambert, [address] [place] [address], [address]. [phone] OFFICE VISIT, EST TELEMEDICINE [facility], [address] [place] [address], [id number] , [place] tel:[phone] [facility] Arm pain (chief complaint) Radiculopathy, cervical regionPostlami nectomy syndrome, not elsewhere classifiedInso mnia, unspecifiedLon g term (current) use of opiate analgesicChron ic pain syndrome Oct-0 8- 0 Sharon Baird. [address] [place] [address], [id number], [place]. tel:[phone] Referring Provider: Ortiz Lambert, [address] [place] [address], [address]. tel:[phone] OFFICE VISIT, EST TELEMEDICINE [facility], [address] [place] [address], [id number] , [place] tel:[phone] [facility] Arm pain (chief complaint) Radiculopathy, cervical regionPostlami nectomy syndrome, not elsewhere classifiedInso mnia, unspecifiedLon g term (current) use of opiate analgesicChron ic pain syndrome Sep- 0 Sharon Baird. [address] [place] [address], [id number], [place]. tel:[phone] Referring Provider: Ortiz Lambert, [address] [place] [address], [address]. [phone] OFFICE VISIT, EST TELEMEDICINE [facility], [address] [place] [address], [id number] , [place] tel:[phone] [facility] Arm pain (chief complaint) Radiculopathy, cervical regionPostlami nectomy syndrome, not elsewhere classifiedInso mnia, unspecifiedChr onic pain syndromeLong term (current) use of opiate analgesic 0 Sharon Baird. [address] [place] [address], [id number], [place]. tel:[phone] Referring Provider: Ortiz Lambert, [address] [place] [address], [address]. [phone] OFFICE VISIT, EST TELEMEDICINE [facility], [address] [place] [address], [id number] , [place] tel:[phone] [facility] (chief complaint) Radiculopathy, cervical regionPostlami nectomy syndrome, not elsewhere classifiedInso mnia, unspecifiedChr onic pain syndromeLong term (current) use of opiate analgesic 0 Sharon Baird. [address] [place] [address], [id number], [place]. tel:[phone] Referring Provider: Ortiz Lambert, [address] [place] [address], [address]. tel:[phone] OFFICE VISIT, [facility], [address] [place] [address], [id number] , [place] [phone] [facility] Arm pain (chief complaint) Radiculopathy, cervical regionPostlami nectomy syndrome, not elsewhere classifiedInso mnia, unspecifiedChr onic pain syndromeLong term (current) use of opiate analgesic 0 Herrera Oli. [address] [place] [address], [id number], [place]. tel:[phone] Referring Provider: Ortiz Lambert, [address] [place] [address], [address]. [phone] OFFICE VISIT, [facility], [address] [place] [address], [id number] , [place] tel:[phone] [facility] Arm pain (chief complaint) Radiculopathy, cervical regionPostlami nectomy syndrome, not elsewhere classifiedInso mnia, unspecifiedChr onic pain syndromeLong term (current) use of opiate analgesic 0 Herrera Oli. [address] [place] [address], [id number], [place]. tel:[phone] OFFICE VISIT, [facility], [address] [place] [address], [id number] , [place] tel:[phone] [facility] Arm pain (chief complaint) Radiculopathy, cervical regionPostlami nectomy syndrome, not elsewhere classifiedInso mnia, unspecifiedChr onic pain syndromeLong term (current) use of opiate analgesic 0 Herrera Oli. [address] [place] [address], [id number], [place]. tel:[phone] Referring Provider: Ortiz Lambert, [address] [place] [address], [address]. tel:[phone] OFFICE VISIT, [facility] TELEMEDICINE [facility], [address] [place] [address], [id number] , tel:[phone] [facility] Arm pain (chief complaint) Radiculopathy, cervical regionPostlami nectomy syndrome, not elsewhere classifiedChro ferdinand pain syndromeInsomn ia, unspecifiedLon g term (current) use of opiate analgesic 0 Herrera Oli. [address] [facility] [address], [place], [id number], [place]. tel:[phone] Referring Provider: Ortiz Lambert, [address] [place] [address], [address]. tel:[phone] OFFICE/OUTPAT IENT VISIT, [facility], [address] [place] [address], [id number] , [phone] [facility] Arm pain (chief complaint) assisted (current) use of opiate analgesicRadic ulopathy, cervical regionPostlami nectomy syndrome, not elsewhere classifiedChro ferdinand pain syndromeInsomn ia, unspecified 0 Herreradarryl Baird. [address] [place] [address], [place], [id number], [place]. tel:[phone] Referring Provider: Ortiz Lambert, [address] [place] [address], [address]. tel:[phone] OFFICE/OUTPAT IENT VISIT, [facility], [address] [place] [address], [id number] , [place] [phone] [facility] Arm pain (chief complaint) assisted (current) use of opiate analgesicPostl aminectomy syndrome, not elsewhere classifiedRadi culopathy, cervical regionChronic pain syndromeInsomn ia, unspecified 0 Herrera Oli. [address] [facility] [address], [place], [id number], [place]. tel:[phone] Referring Provider: Ortiz Lambert, [address] [place] [address], [address]. tel:[phone] OFFICE/OUTPAT IENT VISIT, [facility], [address] [place] [address], [id number] , [place] tel:[phone] [facility] Arm pain (chief complaint) technician terminal and repeater (current) use of opiate analgesicPostl aminectomy syndrome, not elsewhere classifiedRadi culopathy, cervical regionChronic pain syndromeInsomn ia, unspecified Dec-3 0-201 9 Herrera Oli. 14[address] [facility] [address], [place], [id number], [place]. tel:[phone] Referring Provider: Ortiz Lambert, [address] [place] [address], [address]. [phone] OFFICE/OUTPAT IENT VISIT, [facility], [address] [place] [address], [id number] , [place] tel:[phone] [facility] Arm pain (chief complaint) assisted (current) use of opiate analgesicRadic ulopathy, cervical regionPostlami nectomy syndrome, not elsewhere classifiedChro ferdinand pain syndrome Dec-0 3-201 9 Herrera Oli. [address] [place] [address], [id number], [place]. tel:[phone] Referring Provider: Ortiz Lambert, [address] [place] [address], [address]. [phone] OFFICE/OUTPAT IENT VISIT, [facility], [address] [place] [address], [id number] , [place] [phone] [facility] Arm pain (chief complaint) assisted (current) use of opiate analgesicRadic ulopathy, cervical regionPostlami nectomy syndrome, not elsewhere classifiedChro ferdinand pain syndrome Nov-0 4-201 9 Herrera Oli. [address] [facility] [address], [place], [id number], [place]. tel:[phone] Referring Provider: Ortiz Lambert, [address] [place] [address], [address]. tel:[phone] OFFICE/OUTPAT IENT VISIT, EST [facility], [address] [place] [address], [id number] , [place] tel:[phone] [facility] Arm pain (chief complaint) Postlaminectom y syndrome, not elsewhere classifiedRadi culopathy, cervical regionChronic pain syndromeLong term (current) use of opiate analgesic 9 Sharon Baird. [address] [facility] [address], [place], [id number], [place]. tel:[phone] Referring Provider: Ortiz Lambert, [address] [place] [address], [address]. tel:[phone] OFFICE CONSULTATION [facility], [address] [place] [address], [id number] , [place] tel:[phone] [facility] Arm pain (chief complaint) Chronic pain syndromeRadicu lopathy, cervical regionLong term (current) use of opiate analgesicEncou nter for therapeutic drug level monitoringPost laminectomy syndrome, not elsewhere classified 9 Sharon Baird. [facility]5 [facility] [address], [place], [id number], [place]. tel:[phone] Referring Provider: Arnulfo Holt, [facility] [address], [place], [address]. [phone] [facility], [address] [place] [address], [id number] , [place] [phone] [facility] Arm pain (chief complaint) No Information 9 Sharon Baird. [facility]5 [facility] [address], [place], [id number], [place]. tel:[phone] Family History Family Member Type Diagnosis Age At Onset Father Problem (finding) back pain Payers Payer name Insurance type Covered libertarian ID Authoriza tion(s) No Information Social History Type Description Quantity Date Captured Comments Alcohol Use Details Unknown Caffeine Use Details Unknown Tobacco Use Status No Information Smoking Status No Information Sex Female Chief Complaint And Reason For Visit No Information Reason For Referral Reason For Referral No Information Plan Of Treatment Date Type Action Status Goal OARS. Due on due Goal YOUTH SPECIALIST Scanned. Due on due Goal Creatinine. Due on due Goal ALT (SGPT). Due on due Goal YARD SUPERVISOR [employer] Paperwork. Due on due Goal AST (SGOT). Due on due Goal Height. Due on d ue Goal Order Annual PT. Due on due Goal Tobacco Use. Due on due Goal Review Allergy L ist. Due on due Goal Unhealthy drug u se screening. Due on due Goal PHQ-9. Due on du e Goal Update Social Hi story. Due on due Goal FIT. Due on due Goal CT-Colonography. Due on due Goal Hepatitis C scre ening. Due on due Goal FIT-DNA. Due on due Goal UDT. Due on due Goal Weight. Due on d ue Goal Medication Recon ciliation. Due on due Goal Lipid panel. Due on due Goal Zoster vaccine ( ). Due on due Goal Zoster vaccine ( ). Due on due Goal FIT-DNA. Due on due Goal UDT. Due on due Goal Order Annual PT. Due on due Goal Tobacco Use. Due on due Goal YOUTH SPECIALIST Scanned. Due on due Goal AST (SGOT). Due on due Goal Hepatitis C scre ening. Due on due Goal PHQ-9. Due on du e Goal Unhealthy drug u se screening. Due on due Goal Lipid panel. Due on due Goal FIT. Due on due Goal Creatinine. Due on due Goal ALT (SGPT). Due on due Goal Update Social Hi story. Due on due Goal Height. Due on d ue Goal OARS. Due on due Goal YARD SUPERVISOR [employer] Paperwork. Due on due Goal Medication Recon ciliation. Due on due Goal Review Allergy L ist. Due on due Goal CT-Colonography. Due on due Goal Weight. Due on d ue Goal OARS. Due on due Goal Medication Recon ciliation. Due on due Goal Order Annual PT. Due on due Goal Zoster vaccine ( 1st). Due on due Goal Update Social Hi story. Due on due Goal Height. Due on d ue Goal Creatinine. Due on due Goal CT-Colonography. Due on due Goal YOUTH SPECIALIST Scanned. Due on due Goal AST (SGOT). Due on due Goal YARD SUPERVIS[employer] Paperwork. Due on due Goal PHQ-9. Due on du e Goal FIT. Due on due Goal UDT. Due on due Goal ALT (SGPT). Due on due Goal Unhealthy drug u se screening. Due on due Goal Weight. Due on d ue Goal Tobacco Use. Due on due Goal FIT-DNA. Due on due Goal Hepatitis C scre ening. Due on due Goal Review Allergy L ist. Due on due Goal Lipid panel. Due on due Goal Creatinine. Due on due Goal AST (SGOT). Due on due Goal ALT (SGPT). Due on due Goal Order Annual PT. Due on due Goal OARS. Due on due Goal YARD SUPER[employer] Paperwork. Due on due Goal UDT. Due on due Goal FIT. Due on due Goal Update Social Hi story. Due on due Goal Weight. Due on d ue Goal Medication Recon ciliation. Due on due Goal Unhealthy drug u se screening. Due on due Goal CT-Colonography. Due on due Goal Tobacco Use. Due on due Goal Zoster vaccine ( ). Due on due Goal Lipid panel. Due on due Goal Review Allergy L ist. Due on due Goal Height. Due on d ue Goal Hepatitis C scre ening. Due on due Goal HPV. Due on due Goal YOUTH SPECIALIST Scanned. Due on due Goal PHQ-9. Due on du e Goal FIT-DNA. Due on due Goal OARS. Due on due Goal YARD SUPERVIS[employer] Paperwork. Due on due Goal Creatinine. Due on due Goal AST (SGOT). Due on due Goal UDT. Due on due Goal Weight. Due on d ue Goal Hepatitis C scre ening. Due on due Goal FIT-DNA. Due on due Goal PHQ-9. Due on du e Goal ALT (SGPT). Due on due Goal Order Annual PT. Due on due Goal Medication Recon ciliation. Due on due Goal Height. Due on d ue Goal FIT. Due on due Goal Tobacco Use. Due on due Goal Update Social Hi story. Due on due Goal Lipid panel. Due on due Goal Review Allergy L ist. Due on due Goal CT-Colonography. Due on due Goal Zoster vaccine ( 1st). Due on due Goal Unhealthy drug u se screening. Due on due Goal HPV. Due on due Goal YOUTH SPECIALIST Scanned. Due on due Goal ALT (SGPT). Due on due Goal AST (SGOT). Due on due Goal Creatinine. Due on due Goal YARD SUPERVISOR [employer] Paperwork. Due on due Goal OARS. Due on due Goal UDT. Due on due Goal YOUTH SPECIALIST Scanned. Due on due Goal Order Annual PT. Due on due Goal Lipid panel. Due on due Goal CT-Colonography. Due on due Goal PHQ-9. Due on du e Goal Review Allergy L ist. Due on due Goal Unhealthy drug u se screening. Due on due Goal Weight. Due on d ue Goal Tobacco Use. Due on due Goal Height. Due on d ue Goal Update Social Hi story. Due on due Goal Medication Recon ciliation. Due on due Goal Hepatitis C scre ening. Due on due Goal Zoster vaccine ( 1st). Due on due Goal FIT-DNA. Due on due Goal FIT. Due on due Goal HPV. Due on due Goal UDT. Due on due Goal Creatinine. Due on due Goal YARD SUPERVISOR [employer] Paperwork. Due on due Goal FIT-DNA. Due on due Goal Weight. Due on d ue Goal Lipid panel. Due on due Goal ALT (SGPT). Due on due Goal Hepatitis C scre ening. Due on due Goal Review Allergy L ist. Due on due Goal YOUTH SPECIALIST Scanned. Due on due Goal PHQ-9. Due on du e Goal HPV. Due on due Goal AST (SGOT). Due on [address]-Colonography. Due on due Goal Height. Due on d ue Goal Zoster vaccine ( 1st). Due on due Goal Order Annual PT. Due on due Goal Tobacco Use. Due on due Goal Medication Recon ciliation. Due on due Goal FIT. Due on due Goal OARS. Due on due Goal Unhealthy drug u se screening. Due on due Goal Update Social Hi story. Due on due Goal Order Annual PT. Due on due Goal YARD SUPER[employer] Paperwork. Due on due Goal ALT (SGPT). Due on 23 due Goal Weight. Due on d ue Goal CT-Colonography. Due on due Goal OARS. Due on due Goal UDT. Due on due Goal HPV. Due on due Goal YOUTH SPECIALIST Scanned. Due on 023 due Goal Height. Due on d ue Goal Lipid panel. Due on due Goal FIT. Due on due Goal Hepatitis C scre ening. Due on due Goal Tobacco Use. Due on due Goal Medication Recon ciliation. Due on due Goal Unhealthy drug u se screening. Due on due Goal Update Social Hi story. Due on due Goal FIT-DNA. Due on due Goal AST (SGOT). Due on due Goal Review Allergy L ist. Due on due Goal Creatinine. Due on due Goal Zoster vaccine ( ). Due on due Goal PHQ-9. Due on du e Goal FIT. Due on due Goal Review Allergy L ist. Due on due Goal PHQ-9. Due on du e Goal YARD SUPERVISOR [employer] Paperwork. Due on due Goal ALT (SGPT). Due on due Goal Unhealthy drug u se screening. Due on due Goal Order Annual PT. Due on due Goal Medication Recon ciliation. Due on due Goal Zoster vaccine ( ). Due on due Goal Update Social Hi story. Due on due Goal FIT-DNA. Due on due Goal HPV. Due on due Goal UDT. Due on due Goal Lipid panel. Due on due Goal AST (SGOT). Due on due Goal Tobacco Use. Due on due Goal OARS. Due on due Goal Creatinine. Due on due Goal Height. Due on d ue Goal CT-Colonography. Due on due Goal Weight. Due on d ue Goal YOUTH SPECIALIST Scanned. Due on due Goal Hepatitis C scre ening. Due on due Goal Order Annual PT. Due on due Goal Creatinine. Due on due Goal ALT (SGPT). Due on due Goal AST (SGOT). Due on due Goal PHQ-9. Due on du e Goal UDT. Due on due Goal OARS. Due on due Goal FIT. Due on due Goal YOUTH SPECIALIST Scanned. Due on due Goal Medication Recon ciliation. Due on due Goal Height. Due on d ue Goal Weight. Due on d ue Goal FIT-DNA. Due on due Goal CT-Colonography. Due on due Goal Tobacco Use. Due on due Goal Zoster vaccine ( 1st). Due on due Goal HPV. Due on due Goal Hepatitis C scre ening. Due on due Goal Lipid panel. Due on due Goal Update Social Hi story. Due on due Goal Unhealthy drug u se screening. Due on due Goal Review Allergy L ist. Due on due Goal YARD SUPERVISOR [employer] Paperwork. Due on due Goal Order Annual PT. Due on due Goal Creatinine. Due on due Goal AST (SGOT). Due on due Goal UDT. Due on due Goal OARS. Due on due Goal CT-Colonography. Due on due Goal YARD SUPERVISOR [employer] Paperwork. Due on due Goal YOUTH SPECIALIST Scanned. Due on due Goal Height. Due on d ue Goal ALT (SGPT). Due on due Goal Hepatitis C scre ening. Due on due Goal PHQ-9. Due on du e Goal Unhealthy drug u se screening. Due on due Goal Medication Recon ciliation. Due on due Goal Lipid panel. Due on 023 due Goal Review Allergy L ist. Due on due Goal FIT-DNA. Due on due Goal Weight. Due on d ue Goal Update Social Hi story. Due on due Goal HPV. Due on due Goal Zoster vaccine ( 1st). Due on due Goal Tobacco Use. Due on due Goal FIT. Due on due Goal OARS. Due on due Goal AST (SGOT). Due on due Goal PHQ-9. Due on du e Goal Order Annual PT. Due on due Goal Creatinine. Due on due Goal Height. Due on d ue Goal Hepatitis C scre ening. Due on due Goal CT-Colonography. Due on due Goal FIT-DNA. Due on due Goal Review Allergy L ist. Due on due Goal HPV. Due on due Goal Zoster vaccine ( 1st). Due on due Goal Update Social Hi story. Due on due Goal ALT (SGPT). Due on due Goal Tobacco Use. Due on due Goal Weight. Due on d ue Goal UDT. Due on due Goal YOUTH SPECIALIST Scanned. Due on due Goal Lipid panel. Due on due Goal YARD SUPERVIS[employer] Paperwork. Due on due Goal Medication Recon ciliation. Due on due Goal Unhealthy drug u se screening. Due on due Goal FIT. Due on due Goal Hepatitis C scre ening. Due on due Goal AST (SGOT). Due on due Goal Lipid panel. Due on due Goal Update Social Hi story. Due on due Goal OARS. Due on due Goal HPV. Due on due Goal YARD SUPERVIS[employer] Paperwork. Due on due Goal Review Allergy L ist. Due on due Goal UDT. Due on due Goal Unhealthy drug u se screening. Due on due Goal PHQ-9. Due on du e Goal FIT-DNA. Due on due Goal Weight. Due on d ue Goal Tobacco Use. Due on due Goal FIT. Due on due Goal Height. Due on d ue Goal YOUTH SPECIALIST Scanned. Due on due Goal Medication Recon ciliation. Due on due Goal Creatinine. Due on due Goal Order Annual PT. Due on due Goal ALT (SGPT). Due on due Goal Zoster vaccine ( 1st). Due on due Goal CT-Colonography. Due on due Goal FIT-DNA. Due on due Goal Hepatitis C scre ening. Due on due Goal Weight. Due on d ue Goal FIT. Due on due Goal ALT (SGPT). Due on due Goal HPV. Due on due Goal Unhealthy drug u se screening. Due on due Goal Zoster vaccine ( 1st). Due on due Goal CT-Colonography. Due on due Goal AST (SGOT). Due on due Goal Medication Recon ciliation. Due on due Goal OARS. Due on due Goal YOUTH SPECIALIST Scanned. Due on due Goal YARD SUPERVIS[employer] Paperwork. Due on due Goal Lipid panel. Due on due Goal Tobacco Use. Due on due Goal Creatinine. Due on due Goal Height. Due on d ue Goal Order Annual PT. Due on due Goal Review Allergy L ist. Due on due Goal PHQ-9. Due on du e Goal Update Social Hi story. Due on due Goal UDT. Due on due Goal Order Annual PT. Due on due Goal Update Social Hi story. Due on due Goal ALT (SGPT). Due on due Goal UDT. Due on due Goal FIT. Due on due Goal Height. Due on d ue Goal HPV. Due on due Goal YOUTH SPECIALIST Scanned. Due on 023 due Goal Medication Recon ciliation. Due on due Goal Weight. Due on d ue Goal Creatinine. Due on due Goal Zoster vaccine ( 1st). Due on due Goal Review Allergy L ist. Due on due Goal Lipid panel. Due on 023 due Goal Hepatitis C scre ening. Due on due Goal Unhealthy drug u se screening. Due on due Goal CT-Colonography. Due on due Goal PHQ-9. Due on du e Goal Tobacco Use. Due on 022 due Goal YARD SUPERVISOR [employer] Paperwork. Due on due Goal FIT-DNA. Due on due Goal OARS. Due on due Goal AST (SGOT). Due on due Goal YOUTH SPECIALIST Scanned. Due on due Goal Order Annual PT. Due on due Goal Unhealthy drug u se screening. Due on due Goal Review Allergy L ist. Due on due Goal AST (SGOT). Due on due Goal Height. Due on d ue Goal OARS. Due on due Goal YARD SUPERVIS[employer] Paperwork. Due on due Goal FIT-DNA. Due on due Goal ALT (SGPT). Due on due Goal UDT. Due on due Goal Weight. Due on d ue Goal Hepatitis C scre ening. Due on due Goal Creatinine. Due on due Goal Zoster vaccine ( 1st). Due on due Goal FIT. Due on due Goal PHQ-9. Due on du e Goal Lipid panel. Due on due Goal Medication Recon ciliation. Due on due Goal HPV. Due on due Goal Tobacco Use. Due on due Goal Update Social Hi story. Due on due Goal CT-Colonography. Due on due Goal UDT. Due on due Goal OARS. Due on due Goal YARD SUPER[employer] Paperwork. Due on due Goal AST (SGOT). Due on due Goal ALT (SGPT). Due on due Goal Order Annual PT. Due on due Goal YOUTH SPECIALIST Scanned. Due on 023 due Goal Unhealthy drug u se screening. Due on due Goal HPV. Due on due Goal Zoster vaccine ( 1st). Due on due Goal PHQ-9. Due on du e Goal Creatinine. Due on due Goal Height. Due on d ue Goal Review Allergy L ist. Due on due Goal FIT-DNA. Due on due Goal Weight. Due on d ue Goal FIT. Due on due Goal Lipid panel. Due on 023 due Goal Medication Recon ciliation. Due on due Goal CT-Colonography. Due on due Goal Update Social Hi story. Due on due Goal Tobacco Use. Due on 022 due Goal Hepatitis C scre ening. Due on due Goal AST (SGOT). Due on due Goal HPV. Due on due Goal YOUTH SPECIALIST Scanned. Due on due Goal YARD SUPER[employer] Paperwork. Due on due Goal OARS. Due on due Goal Zoster vaccine ( 1st). Due on due Goal ALT (SGPT). Due on due Goal PHQ-9. Due on du e Goal Update Social Hi story. Due on due Goal Review Allergy L ist. Due on due Goal Order Annual PT. Due on due Goal UDT. Due on due Goal Creatinine. Due on due Goal Lipid panel. Due on due Goal Medication Recon ciliation. Due on due Goal CT-Colonography. Due on due Goal Weight. Due on d ue Goal FIT-DNA. Due on due Goal Hepatitis C scre ening. Due on due Goal Unhealthy drug u se screening. Due on due Goal Tobacco Use. Due on due Goal FIT. Due on due Goal Height. Due on d ue Goal YOUTH SPECIALIST Scanned. Due on due Goal Update Social Hi story. Due on due Goal UDT. Due on due Goal Lipid panel. Due on due Goal CT-Colonography. Due on due Goal Order Annual PT. Due on due Goal Creatinine. Due on due Goal FIT-DNA. Due on due Goal ALT (SGPT). Due on due Goal Unhealthy drug u se screening. Due on due Goal FIT. Due on due Goal Tobacco Use. Due on due Goal Height. Due on d ue Goal Hepatitis C scre ening. Due on due Goal Review Allergy L ist. Due on due Goal Zoster vaccine ( 1st). Due on due Goal Medication Recon ciliation. Due on due Goal YARD SUPER[employer] Paperwork. Due on due Goal OARS. Due on due Goal PHQ-9. Due on du e Goal Weight. Due on d ue Goal AST (SGOT). Due on due Goal HPV. Due on due Goal Height. Due on d ue Goal YOUTH SPECIALIST Scanned. Due on due Goal Lipid panel. Due on due Goal Weight. Due on d ue Goal HPV. Due on due Goal Unhealthy drug u se screening. Due on due Goal Review Allergy L ist. Due on due Goal AST (SGOT). Due on due Goal FIT-DNA. Due on due Goal CT-Colonography. Due on due Goal OARS. Due on due Goal Order Annual PT. Due on due Goal Update Social Hi story. Due on due Goal UDT. Due on due Goal YARD SUPER[employer] Paperwork. Due on due Goal Hepatitis C scre ening. Due on due Goal Creatinine. Due on due Goal Medication Recon ciliation. Due on due Goal Zoster vaccine ( 1st). Due on due Goal Tobacco Use. Due on due Goal ALT (SGPT). Due on due Goal FIT. Due on due Goal PHQ-9. Due on du e Goal ALT (SGPT). Due on due Goal UDT. Due on due Goal HPV. Due on due Goal Lipid panel. Due on 023 due Goal Update Social Hi story. Due on due Goal OARS. Due on due Goal AST (SGOT). Due on due Goal Hepatitis C scre ening. Due on due Goal Tobacco Use. Due on due Goal Creatinine. Due on due Goal YOUTH SPECIALIST Scanned. Due on due Goal Medication Recon ciliation. Due on due Goal PHQ-9. Due on du e Goal Order Annual PT. Due on due Goal YARD SUPER[employer] Paperwork. Due on due Goal CT-Colonography. Due on due Goal FIT. Due on due Goal Zoster vaccine ( 1st). Due on due Goal FIT-DNA. Due on due Goal Review Allergy L ist. Due on due Goal Height. Due on d ue Goal Weight. Due on d ue Goal Unhealthy drug u se screening. Due on due Goal ALT (SGPT). Due on due Goal YOUTH SPECIALIST Scanned. Due on due Goal AST (SGOT). Due on due Goal Lipid panel. Due on due Goal YARD SUPERVISOR [employer] Paperwork. Due on due Goal FIT-DNA. Due on due Goal CT-Colonography. Due on due Goal PHQ-9. Due on du e Goal Height. Due on d ue Goal Tobacco Use. Due on 022 due Goal Creatinine. Due on due Goal Hepatitis C scre ening. Due on due Goal UDT. Due on due Goal Update Social Hi story. Due on due Goal Unhealthy drug u se screening. Due on due Goal Weight. Due on d ue Goal OARS. Due on due Goal Order Annual PT. Due on due Goal HPV. Due on due Goal FIT. Due on due Goal Medication Recon ciliation. Due on due Goal Review Allergy L ist. Due on due Goal Zoster vaccine ( 1st). Due on due Goal Unhealthy drug u se screening. Due on due Goal FIT-DNA. Due on due Goal Lipid panel. Due on 023 due Goal ALT (SGPT). Due on due Goal Weight. Due on d ue Goal PHQ-9. Due on du e Goal AST (SGOT). Due on due Goal YOUTH SPECIALIST Scanned. Due on due Goal Update Social Hi story. Due on due Goal Hepatitis C scre ening. Due on due Goal Creatinine. Due on due Goal Height. Due on d ue Goal UDT. Due on due Goal CT-Colonography. Due on due Goal YARD SUPERVIS[employer] Paperwork. Due on due Goal Tobacco Use. Due on due Goal HPV. Due on due Goal Zoster vaccine ( 1st). Due on due Goal Order Annual PT. Due on due Goal Medication Recon ciliation. Due on due Goal Review Allergy L ist. Due on due Goal FIT. Due on due Goal OARS. Due on due Goal UDT. Due on due Goal AST (SGOT). Due on due Goal ALT (SGPT). Due on due Goal Creatinine. Due on due Goal YARD SUPERVIS[employer] Paperwork. Due on due Goal YOUTH SPECIALIST Scanned. Due on due Goal Order Annual PT. Due on due Goal OARS. Due on due Goal Zoster vaccine ( 1st). Due on due Goal Update Social Hi story. Due on due Goal Tobacco Use. Due on due Goal Height. Due on d ue Goal FIT. Due on due Goal FIT-DNA. Due on due Goal Weight. Due on d ue Goal Hepatitis C scre ening. Due on due Goal PHQ-9. Due on du e Goal Unhealthy drug u se screening. Due on due Goal HPV. Due on due Goal CT-Colonography. Due on due Goal Medication Recon ciliation. Due on due Goal Review Allergy L ist. Due on due Goal Lipid panel. Due on due Goal UDT. Due on due Goal Order Annual PT. Due on due Goal ALT (SGPT). Due on due Goal OARS. Due on due Goal YOUTH SPECIALIST Scanned. Due on due Goal CT-Colonography. Due on due Goal Update Social Hi story. Due on due Goal Zoster vaccine ( 1st). Due on due Goal HPV. Due on due Goal Lipid panel. Due on due Goal FIT. Due on due Goal Review Allergy L ist. Due on due Goal Medication Recon ciliation. Due on due Goal Weight. Due on d ue Goal PHQ-9. Due on du e Goal FIT-DNA. Due on due Goal Creatinine. Due on due Goal Hepatitis C scre ening. Due on due Goal AST (SGOT). Due on due Goal Tobacco Use. Due on due Goal Height. Due on d ue Goal YARD SUPERVISOR [employer] Paperwork. Due on due Goal Unhealthy drug u se screening. Due on due Goal ALT (SGPT). Due on due Goal AST (SGOT). Due on due Goal Creatinine. Due on due Goal UDT. Due on due Goal Order Annual PT. Due on due Goal OARS. Due on due Goal YARD SUPERVISOR [employer] Paperwork. Due on due Goal YOUTH SPECIALIST Scanned. Due on due Goal Tobacco Use. Due on due Goal Update Social Hi story. Due on due Goal FIT-DNA. Due on due Goal Height. Due on d ue Goal Hepatitis C scre ening. Due on due Goal Lipid panel. Due on due Goal HPV. Due on due Goal Zoster vaccine ( 1st). Due on due Goal CT-Colonography. Due on due Goal PHQ-9. Due on du e Goal Medication Recon ciliation. Due on due Goal Review Allergy L ist. Due on due Goal Weight. Due on d ue Goal Unhealthy drug u se screening. Due on due Goal FIT. Due on due Goal AST (SGOT). Due on due Goal OARS. Due on due Goal YARD SUPERVISOR [employer] Paperwork. Due on due Goal ALT (SGPT). Due on due Goal PHQ-9. Due on du e Goal Hepatitis C scre ening. Due on due Goal Height. Due on d ue Goal YOUTH SPECIALIST Scanned. Due on due Goal UDT. Due on due Goal HPV. Due on due Goal FIT. Due on due Goal Order Annual PT. Due on due Goal Zoster vaccine ( ). Due on due Goal CT-Colonography. Due on due Goal Tobacco Use. Due on due Goal Creatinine. Due on due Goal Review Allergy L ist. Due on due Goal Medication Recon ciliation. Due on due Goal Weight. Due on d ue Goal Update Social Hi story. Due on due Goal Lipid panel. Due on due Goal FIT-DNA. Due on due Goal Unhealthy drug u se screening. Due on due Goal AST (SGOT). Due on due Goal ALT (SGPT). Due on due Goal Order Annual PT. Due on due Goal Review Allergy L ist. Due on due Goal Creatinine. Due on due Goal PHQ-9. Due on du e Goal YOUTH SPECIALIST Scanned. Due on due Goal FIT. Due on due Goal Tobacco Use. Due on due Goal UDT. Due on due Goal Lipid panel. Due on due Goal Zoster vaccine ( 1st). Due on due Goal YARD SUPERVISOR [employer] Paperwork. Due on due Goal Weight. Due on d ue Goal CT-Colonography. Due on due Goal Update Social Hi story. Due on due Goal Unhealthy drug u se screening. Due on due Goal Hepatitis C scre ening. Due on due Goal Medication Recon ciliation. Due on due Goal HPV. Due on due Goal Height. Due on d ue Goal FIT-DNA. Due on due Goal OARS. Due on due Goal Unhealthy drug u se screening. Due on due Goal ALT (SGPT). Due on due Goal HPV. Due on due Goal Tobacco Use. Due on due Goal Order Annual PT. Due on due Goal OARS. Due on due Goal YOUTH SPECIALIST Scanned. Due on due Goal FIT-DNA. Due on due Goal Lipid panel. Due on due Goal UDT. Due on due Goal Creatinine. Due on due Goal YARD SUPERVIS[employer] Paperwork. Due on due Goal Hepatitis C scre ening. Due on due Goal AST (SGOT). Due on due Goal Zoster vaccine ( 1st). Due on due Goal Medication Recon ciliation. Due on due Goal PHQ-9. Due on du e Goal Review Allergy L ist. Due on due Goal FIT. Due on due Goal Weight. Due on d ue Goal Update Social Hi story. Due on due Goal Height. Due on d ue Goal CT-Colonography. Due on due Goal Unhealthy drug u se screening. Due on due Goal Tobacco Use. Due on due Goal HPV. Due on due Goal FIT-DNA. Due on due Goal OARS. Due on due Goal Lipid panel. Due on due Goal Hepatitis C scre ening. Due on due Goal CT-Colonography. Due on due Goal ALT (SGPT). Due on due Goal YARD SUPERVISOR [employer] Paperwork. Due on due Goal PHQ-9. Due on du e Goal Review Allergy L ist. Due on due Goal AST (SGOT). Due on due Goal Height. Due on d ue Goal YOUTH SPECIALIST Scanned. Due on due Goal FIT. Due on due Goal Order Annual PT. Due on due Goal Medication Recon ciliation. Due on due Goal Creatinine. Due on due Goal Zoster vaccine ( 1st). Due on due Goal Weight. Due on d ue Goal Update Social Hi story. Due on due Goal UDT. Due on due Goal Lipid panel. Due on due Goal CT-Colonography. Due on due Goal Order Annual PT. Due on due Goal YARD SUPERVISOR [employer] Paperwork. Due on due Goal FIT-DNA. Due on due Goal UDT. Due on due Goal AST (SGOT). Due on due Goal Creatinine. Due on due Goal YOUTH SPECIALIST Scanned. Due on due Goal OARS. Due on due Goal Hepatitis C scre ening. Due on due Goal ALT (SGPT). Due on due Goal PHQ-9. Due on du e Goal HPV. Due on due Goal Weight. Due on d ue Goal Medication Recon ciliation. Due on due Goal Height. Due on d ue Goal FIT. Due on due Goal Unhealthy drug u se screening. Due on due Goal Tobacco Use. Due on due Goal Zoster vaccine ( 1st). Due on due Goal Update Social Hi story. Due on due Goal Review Allergy L ist. Due on due Goal Order Annual PT. Due on due Goal UDT. Due on due Goal ALT (SGPT). Due on due Goal AST (SGOT). Due on due Goal Creatinine. Due on due Goal YARD SUPERVISOR [employer] Paperwork. Due on due Goal YOUTH SPECIALIST Scanned. Due on due Goal OARS. Due on due Goal Height. Due on d ue Goal CT-Colonography. Due on due Goal PHQ-9. Due on du e Goal FIT-DNA. Due on due Goal Medication Recon ciliation. Due on due Goal Weight. Due on d ue Goal FIT. Due on due Goal Unhealthy drug u se screening. Due on due Goal Update Social Hi story. Due on due Goal Review Allergy L ist. Due on due Goal Tobacco Use. Due on due Goal Zoster vaccine ( 1st). Due on due Goal HPV. Due on due Goal Lipid panel. Due on due Goal Hepatitis C scre ening. Due on due Goal YARD SUPERVISOR [employer] Paperwork. Due on due Goal Zoster vaccine ( 1st). Due on due Goal UDT. Due on due Goal Tobacco Use. Due on due Goal Hepatitis C scre ening. Due on due Goal FIT. Due on due Goal Weight. Due on d ue Goal Review Allergy L ist. Due on due Goal Creatinine. Due on due Goal PHQ-9. Due on du e Goal Update Social Hi story. Due on due Goal OARS. Due on due Goal Order Annual PT. Due on due Goal ALT (SGPT). Due on due Goal Height. Due on d ue Goal Medication Recon ciliation. Due on due Goal Lipid panel. Due on due Goal FIT-DNA. Due on due Goal CT-Colonography. Due on due Goal YOUTH SPECIALIST Scanned. Due on due Goal HPV. Due on due Goal AST (SGOT). Due on due Goal Unhealthy drug u se screening. Due on due Goal YARD SU[employer] Paperwork. Due on due Goal Update Social Hi story. Due on due Goal YOUTH SPECIALIST Scanned. Due on due Goal Height. Due on d ue Goal Tobacco Use. Due on due Goal Weight. Due on d ue Goal Review Allergy L ist. Due on due Goal Order Annual PT. Due on due Goal ALT (SGPT). Due on due Goal OARS. Due on due Goal Creatinine. Due on due Goal Medication Recon ciliation. Due on due Goal AST (SGOT). Due on due Goal PHQ-9. Due on du e Goal UDT. Due on due Goal Update Social Hi story. Due on due Goal Tobacco Use. Due on due Goal UDT. Due on due Goal OARS. Due on due Goal Creatinine. Due on due Goal Order Annual PT. Due on due Goal YOUTH SPECIALIST Scanned. Due on due Goal YARD SUPER[employer] Paperwork. Due on due Goal AST (SGOT). Due on due Goal Weight. Due on d ue Goal ALT (SGPT). Due on due Goal Medication Recon ciliation. Due on due Goal PHQ-9. Due on du e Goal Review Allergy L ist. Due on due Goal Height. Due on d ue Goal OARS. Due on due Goal YARD SUPER[employer] Paperwork. Due on due Goal ALT (SGPT). Due on due Goal PHQ-9. Due on du e Goal Order Annual PT. Due on due Goal Review Allergy L ist. Due on due Goal Medication Recon ciliation. Due on due Goal Weight. Due on d ue Goal Update Social Hi story. Due on due Goal YOUTH SPECIALIST Scanned. Due on due Goal Creatinine. Due on due Goal UDT. Due on due Goal AST (SGOT). Due on due Goal Height. Due on d ue Goal Tobacco Use. Due on due Goal UDT. Due on due Goal Creatinine. Due on due Goal YOUTH SPECIALIST Scanned. Due on due Goal Update Social Hi story. Due on due Goal OARS. Due on due Goal Medication Recon ciliation. Due on due Goal AST (SGOT). Due on due Goal PHQ-9. Due on du e Goal Order Annual PT. Due on due Goal ALT (SGPT). Due on due Goal Height. Due on d ue Goal Weight. Due on d ue Goal YARD SUPER[employer] Paperwork. Due on due Goal Tobacco Use. Due on due Goal Review Allergy L ist. Due on due Goal YARD SUPER[employer] Paperwork. Due on due Goal AST (SGOT). Due on due Goal Creatinine. Due on due Goal Order Annual PT. Due on due Goal ALT (SGPT). Due on due Goal UDT. Due on due Goal OARS. Due on due Goal PHQ-9. Due on du e Goal YOUTH SPECIALIST Scanned. Due on due Goal Review Allergy L ist. Due on due Goal Tobacco Use. Due on due Goal Update Social Hi story. Due on due Goal Height. Due on d ue Goal Weight. Due on d ue Goal Medication Recon ciliation. Due on due Goal Review Allergy L ist. Due on due Goal OARS. Due on due Goal PHQ-9. Due on du e Goal Height. Due on d ue Goal Order Annual PT. Due on due Goal Weight. Due on d ue Goal ALT (SGPT). Due on due Goal YARD SUPER[employer] Paperwork. Due on due Goal YOUTH SPECIALIST Scanned. Due on due Goal Creatinine. Due on due Goal Medication Recon ciliation. Due on due Goal UDT. Due on due Goal Update Social Hi story. Due on due Goal AST (SGOT). Due on due Goal Tobacco Use. Due on due Goal Creatinine. Due on due Goal ALT (SGPT). Due on due Goal UDT. Due on due Goal OARS. Due on due Goal YARD SUPER[employer] Paperwork. Due on due Goal Review Allergy L ist. Due on due Goal Medication Recon ciliation. Due on due Goal AST (SGOT). Due on due Goal YOUTH SPECIALIST Scanned. Due on due Goal Weight. Due on d ue Goal Height. Due on d ue Goal PHQ-9. Due on du e Goal Order Annual PT. Due on due Goal Update Social Hi story. Due on due Goal Tobacco Use. Due on due Goal Tobacco Use. Due on due Goal Order Annual PT. Due on due Goal AST (SGOT). Due on due Goal YARD SUPER[employer] Paperwork. Due on due Goal Height. Due on d ue Goal ALT (SGPT). Due on due Goal Update Social Hi story. Due on due Goal Medication Recon ciliation. Due on due Goal UDT. Due on due Goal Creatinine. Due on due Goal Weight. Due on d ue Goal YOUTH SPECIALIST Scanned. Due on due Goal OARS. Due on due Goal PHQ-9. Due on du e Goal Review Allergy L ist. Due on due Goal OARS. Due on due Goal Update Social Hi story. Due on due Goal YARD SUPERVISOR [employer] Paperwork. Due on due Goal YOUTH SPECIALIST Scanned. Due on due Goal Creatinine. Due on due Goal PHQ-9. Due on du e Goal UDT. Due on due Goal Order Annual PT. Due on due Goal Weight. Due on d ue Goal AST (SGOT). Due on due Goal ALT (SGPT). Due on due Goal Height. Due on d ue Goal Medication Recon ciliation. Due on due Goal Tobacco Use. Due on due Goal Review Allergy L ist. Due on due Goal Tobacco Use. Due on due Goal UDT. Due on due Goal Medication Recon ciliation. Due on due Goal ALT (SGPT). Due on due Goal OARS. Due on due Goal Review Allergy L ist. Due on due Goal Creatinine. Due on due Goal YARD SUPER[employer] Paperwork. Due on due Goal AST (SGOT). Due on due Goal Weight. Due on d ue Goal Height. Due on d ue Goal Order Annual PT. Due on due Goal Update Social [place] story. Due on due Goal PHQ-9. Due on du e Goal YOUTH SPECIALIST Scanned. Due on due Goal ALT (SGPT). Due on due Goal OARS. Due on due Goal Weight. Due on d ue Goal YARD SUPER[employer] Paperwork. Due on due Goal Medication Recon ciliation. Due on due Goal Creatinine. Due on due Goal YOUTH SPECIALIST Scanned. Due on due Goal UDT. Due on due Goal Order Annual PT. Due on due Goal Tobacco Use. Due on due Goal AST (SGOT). Due on due Goal Height. Due on d ue Goal PHQ-9. Due on du e Goal Review Allergy L ist. Due on due Goal Update Social [place] story. Due on due Goal Review Allergy L ist. Due on due Goal OARS. Due on due Goal Weight. Due on d ue Goal Creatinine. Due on due Goal Tobacco Use. Due on due Goal UDT. Due on due Goal Height. Due on d ue Goal Order Annual PT. Due on due Goal PHQ-9. Due on du e Goal YOUTH SPECIALIST Scanned. Due on due Goal AST (SGOT). Due on due Goal Update Social Hi story. Due on due Goal ALT (SGPT). Due on due Goal YARD SUPERVIS[employer] Paperwork. Due on due Goal Medication Recon ciliation. Due on due Goal OARS. Due on due Goal YARD SUPERVISOR [employer] Paperwork. Due on due Goal AST (SGOT). Due on due Goal Order Annual PT. Due on due Goal Creatinine. Due on due Goal UDT. Due on due Goal YOUTH SPECIALIST Scanned. Due on due Goal ALT (SGPT). Due on due Goal Weight. Due on d ue Goal Medication Recon ciliation. Due on due Goal Update Social Hi story. Due on due Goal Review Allergy L ist. Due on due Goal Height. Due on d ue Goal PHQ-9. Due on du e Goal Tobacco Use. Due on due Goal Creatinine. Due on due Goal UDT. Due on due Goal Height. Due on d ue Goal PHQ-9. Due on du e Goal YOUTH SPECIALIST Scanned. Due on due Goal Medication Recon ciliation. Due on due Goal YARD SUPERVISOR [employer] Paperwork. Due on due Goal AST (SGOT). Due on due Goal OARS. Due on due Goal Update Social Hi story. Due on due Goal Order Annual PT. Due on due Goal Review Allergy L ist. Due on due Goal Tobacco Use. Due on due Goal Weight. Due on d ue Goal ALT (SGPT). Due on due Goal Height. Due on d ue Goal Medication Recon ciliation. Due on due Goal YARD SUPERVISOR [employer] Paperwork. Due on due Goal PHQ-9. Due on du e Goal AST (SGOT). Due on due Goal YOUTH SPECIALIST Scanned. Due on due Goal Creatinine. Due on due Goal Update Social Hi story. Due on due Goal OARS. Due on due Goal Review Allergy L ist. Due on due Goal UDT. Due on due Goal Tobacco Use. Due on due Goal ALT (SGPT). Due on due Goal Order Annual PT. Due on due Goal Weight. Due on d ue Goal YOUTH SPECIALIST Scanned. Due on due Goal PHQ-9. Due on du e Goal Review Allergy L ist. Due on due Goal Height. Due on d ue Goal ALT (SGPT). Due on due Goal Medication Recon ciliation. Due on due Goal Creatinine. Due on due Goal AST (SGOT). Due on due Goal YARD SUPERVISOR [employer] Paperwork. Due on due Goal Update Social Hi story. Due on due Goal Order Annual PT. Due on due Goal OARS. Due on due Goal UDT. Due on due Goal Weight. Due on d ue Goal Tobacco Use. Due on due Goal Medication Recon ciliation. Due on due Goal ALT (SGPT). Due on due Goal Update Social Hi story. Due on due Goal UDT. Due on due Goal YOUTH SPECIALIST Scanned. Due on due Goal Review Allergy L ist. Due on due Goal OARS. Due on due Goal Height. Due on d ue Goal AST (SGOT). Due on due Goal Order Annual PT. Due on due Goal PHQ-9. Due on du e Goal Weight. Due on d ue Goal Tobacco Use. Due on due Goal Creatinine. Due on due Goal YARD SUPERVISOR [employer] Paperwork. Due on due Goal AST (SGOT). Due on due Goal Medication Recon ciliation. Due on due Goal YOUTH SPECIALIST Scanned. Due on due Goal YARD SUPERVISOR [employer] Paperwork. Due on due Goal Update Social Hi story. Due on due Goal PHQ-9. Due on du e Goal Creatinine. Due on due Goal OARS. Due on due Goal Tobacco Use. Due on due Goal UDT. Due on due Goal Weight. Due on d ue Goal Review Allergy L ist. Due on due Goal ALT (SGPT). Due on due Goal Height. Due on d ue Goal Order Annual PT. Due on due Goal Review Allergy L ist. Due on due Goal Medication Recon ciliation. Due on due Goal UDT. Due on due Goal Order Annual PT. Due on due Goal AST (SGOT). Due on due Goal ALT (SGPT). Due on due Goal YOUTH SPECIALIST Scanned. Due on due Goal Tobacco Use. Due on due Goal YARD SUPERVISOR [employer] Paperwork. Due on due Goal OARS. Due on due Goal Update Social Hi story. Due on due Goal Creatinine. Due on due Goal PHQ-9. Due on du e Goal Weight. Due on d ue Goal Height. Due on d ue Goal Creatinine. Due on due Goal AST (SGOT). Due on due Goal Weight. Due on d ue Goal Order Annual PT. Due on due Goal OARS. Due on due Goal ALT (SGPT). Due on due Goal Medication Recon ciliation. Due on due Goal YOUTH SPECIALIST Scanned. Due on due Goal YARD SUPERVISOR [employer] Paperwork. Due on due Goal Tobacco Use. Due on due Goal UDT. Due on due Goal Update Social Hi story. Due on due Goal Height. Due on d ue Goal PHQ-9. Due on du e Goal Review Allergy L ist. Due on due Referral Ordered: [facility] : Family Medicine (related to Postlaminectomy syndrome, not elsewhere classified) ordered Referral Referred To: [facility]
[id number] [place], [address] [phone] Ordered: Referrals: [facility]opathic [facility] Osteopathic Physicians : Family Medicine. [facility] ordered Appointment Shelia Pinto SELF PAY BOOKED Future Order: Radiology Order CT Cervical WO (CTCERVWO), Sent on: Sent Future Order: Radiology Order MR Cervical WO (MRCERVWO), Sent on: Sent Future Order: Lab Order Drug Cris t Def 22+ Classes (G0483), Ordered on: Ordered Future Order: Lab Order COMPLIAN CE DRUG ANALYSIS, URINE, WITH MED REPORT ([id number]), Ordered on: Ordered Future Order: Lab Order Drug Cris t Def 22+ Classes ([id number]), Ordered on: Ordered Future Order: Lab Order COMPLIAN CE DRUG ANALYSIS, URINE, WITH MED REPORT ([id number]), Ordered on: Ordered History Of Present Illness Encounter Date Complaint History Of Prese nt Illness Neck Pain The severity of the problem is 7/10. Duration: chronic. The problem has not changed. The frequency of pain is constant. Location of pain is right anterior neck, right lateral neck, right posterior neck, right shoulder and right arm. Comments: Shelia aguirre s a 58 y/o female who presents virtually for a follow up and medication refill in the setting of chronic R sided neck pain with radiation into the R shoulder and down the lateral R arm. Pain has been overall stable since EPHRAIM, reported at a level 7/10. Has been very busy with family lately. Notes some bad days this month, but no major changes. Of note, she has noticed her medications do not provide relief for as long as they used to. States they still allow her to get things done and that she is still doing well with the regimen. Reports current medication regimen provides 75% pain relief and allows for increased functionality. Continues to utilize Percocet 5-325mg with significant benefit. She presents on track with her medication today. Denies OIC or other side effects from current medication regimen. No other concerns today. Neck Pain The severity of the problem is 7/10. Duration: chronic. The problem has not changed. The frequency of pain is constant. Location of pain is right anterior neck, right lateral neck, right posterior neck, right shoulder and right arm. Comments: Shelia aguirre s a 58 y/o female who presents virtually for a follow up and medication refill in the setting of chronic R sided neck pain with radiation into the R shoulder and down the lateral R arm. Pain has been overall stable since EPHRAIM, reported at a level 7/10. Has been very busy with family lately. Notes some bad days this month, but no major changes. Of note, she has noticed her medications do not provide relief for as long as they used to. States they still allow her to get things done and that she is still doing well with the regimen. Reports current medication regimen provides 75% pain relief and allows for increased functionality. Continues to utilize Percocet 5-325mg with significant benefit. She presents on track with her medication today. Denies OIC or other side effects from current medication regimen. No other concerns today. Comments: Shelia aguirre s a 58 y/o female who presents in clinic for follow up and medication refill in the setting of chronic R sided neck pain with radiation into the R shoulder and down the lateral R arm. Pain has been overall stable this month, reported at a level 7/10. Notes she has started yoga with good benefit to her pain and mental health.No updates on her disability application at this time and states she has been struggling with this. She notes she would rather work but is worried about getting a job that can fit the accommodations that she would need. Reports current medication regimen provides 65% pain relief and allows for increased functionality. Continues to utilize Percocet 5-325mg with significant benefit. She presents on track with her medication today. Denies OIC or other side effects from current medication regimen. No other concerns today. Neck Pain The severity of the problem is 7/20. Duration: chronic. The problem has not changed. Location of pain is right anterior neck, right lateral neck, right posterior neck, right shoulder and right arm. The client describes the pain as Aching, Burning, Sharp and Tingling. Aggravating factors include bending, climbing stairs, lifting, standing, twisting, movement and housework. Relieving factors include heating pad, ice, massage, narcotic analgesics, physical therapy, sitting, stretching, yoga and chiropractic. Pertinent negatives include bladder incontinence. Neck Pain The severity of the problem is 8/10. Duration: chronic. The problem has not changed. The frequency of pain is constant. Location of pain is right anterior neck, right lateral neck, right posterior neck, right shoulder and right arm. Comments: Shelia aguirre s a 58 y/o female who presents virtually for follow up and medication refill in the setting of chronic R sided neck pain with radiation into the R shoulder and down the lateral R arm. Pain has been overall stable but elevated to an 8/10 this month d/t the weather and increased activity.No updates on her disability application at this time. She notes she would rather work but is worried about getting a job that can fit the accommodations that she would need. Reports current medication regimen provides 75% pain relief and allows for increased functionality. Continues to utilize Percocet 5-325mg with significant benefit. She presents on track with her medication today. Denies OIC or other side effects from current medication regimen. No other concerns today. Neck Pain The severity of the problem is 6/10. Duration: chronic. The problem has not changed. The frequency of pain is constant. Location of pain is right lateral neck, right posterior neck, right shoulder and right arm. Comments: Shelia aguirre s a 58 y/o female who presents virtually for follow up and medication refill in the setting of chronic R sided neck pain with radiation into the R shoulder and down the lateral R arm. Pain has been stable and unchanged in nature since her EPHRAIM. Reported at a level 6/10. Denies any new changes or symptoms.Continues to deal with increased stress regarding health concerns with her daughter.Reports current medication regimen provides 75% pain relief and allows for increased functionality. Continues to utilize Percocet 5-325mg with significant benefit. She presents on track with her medication today. Denies OIC or other side effects from current medication regimen. No other concerns today. Neck Pain Duration: chroni c. The problem has not changed. The frequency of pain is constant. Aggravating factors include all movements. Relieving factors include heating pad, ice, massage, narcotic analgesics, stretching and changing positions. Pertinent negatives include bladder incontinence. Comments: Shelia aguirre s a 58 y/o female who presents for follow up and medication refill in the setting of chronic R sided neck pain with radiation into the R shoulder and down the lateral R arm. Pain has been stable and unchanged in nature since her EPHRAIM. Denies any new changes or symptoms.Notes increased stress as her daughter is currently undergoing testing for possible MS. Reports current medication regimen provides 80% pain relief and allows for increased functionality. Continues to utilize Percocet 5-325mg with significant benefit. She presents on track with her medication today. Denies OIC or other side effects from current medication regimen. No other concerns today. Comments: Shelia aguirre s a 57 y/o female who presents via [facility] for a virtual follow up and medication refill in the setting of chronic R sided neck pain with radiation into the R shoulder and down the lateral R arm. Pain has been stable and unchanged in nature since her EPHRAIM, aside from some aggravation with overactivity over the holidays. Denies any new symptoms or changes. Notes her pain does become more severe during the winter time. She is still open to pursuing SCS once she obtains a new insurance, aiming for June.Reports current medication regimen provides 80% pain relief and allows for increased functionality. Continues to utilize Percocet 5-325mg with significant benefit. She presents on track with her medication today. Denies OIC or other side effects from current medication regimen. No other concerns today. Neck Pain The severity of the problem is moderate. Duration: chronic. The problem has not changed. The frequency of pain is constant. Location of pain is right arm, neck and back. Neck Pain The severity of the problem is moderate. Duration: chronic. The problem has not changed. The frequency of pain is constant. Location of pain is right posterior neck, right shoulder and right arm. Comments: Shelia aguirre s a 57 y/o female who presents via [facility] for a virtual follow up and medication refill in the setting of chronic R sided neck pain with radiation into the R shoulder and down the lateral R arm. Pain has been stable and unchanged in nature since her EPHRAIM. Denies any new symptoms or changes. Remains interested in pursuing the cervical SCS trial. Procedure was previously denied by her previous insurance. She states she will be switching over to a new insurance in the new year and would like to have the trial resubmitted again. Reports current medication regimen provides 75% pain relief and allows for increased functionality. Continues to utilize Percocet 5-325mg with significant benefit. She presents on track with her medication today. Denies OIC or other side effects from current medication regimen. No other concerns today. Comments: Shelia aguirre s a 57 y/o female who presents for follow up and medication refill in the setting of chronic R sided neck pain with radiation into the R shoulder and down the lateral R arm. Pain has been stable this month. Denies any new symptoms or changes. Remains interested in pursuing the SCS trial. Procedure was previously denied by her previous insurance. She states she will be switching over to a new insurance in the new year and would like to have the trial resubmitted again. Reports current medication regimen provides moderate pain relief and allows for increased functionality. Continues to utilize Percocet 5-325mg with significant benefit. Denies OIC or other side effects from current medication regimen. No other concerns today. Neck Pain Duration: chroni c. The problem has not changed. The frequency of pain is constant. The client describes the pain as Aching, Burning, Sharp and Tingling. Aggravating factors include bending, climbing stairs, lifting, standing, twisting, walking, prolonged positioning, housework, rising from sitting position and standing on one leg. Relieving factors include heating pad, ice, massage, narcotic analgesics, physical therapy, rest, sitting, stretching, chiropractic, TENS unit and changing positions. Pertinent negatives include bladder incontinence. Neck Pain The severity of the problem is moderate. Duration: chronic. The problem has not changed. The frequency of pain is constant. Location of pain is right anterior neck, right lateral neck, right posterior neck, right shoulder and right arm. The client describes the pain as Aching. Comments: Shelia kulkarni resents virtually for follow up and medication refill. C/o chronic neck pain w/ radiation into R shoulder. Pain has been stable over the past month and is rated a 7/10. Notes she has been more busy lately which has made her a little more sore. Also details aggravation with the fluctuating weather. Her medications and stretching keep the pain at a manageable level for her.Remains interested in trying to get her SCS approved once she obtains new insurance. It was previously denied by her previous insurance. Of note, the patient mentions that she hopes to wean off her medications sometime in the future, but she would like to stay at her current regimen for now.Medication provides 75% pain relief and allows for increased functionality per patient intake. Presents on track with prescribed medication. Denies side effects from current medication regimen. No other concerns today. Comments: Shelia kulkarni resents virtually for follow up and medication refill. C/o chronic neck pain w/ radiation into R shoulder. Pain has been stable since [facility]RAIM and is rated a 6/10. Notes she has been more busy lately which has made her a little more sore. She plans to move her daughter into a new place soon which she is excited about.Remains interested in trying to get her SCS approved once she obtains new insurance. It was previously denied by her previous insurance. Medication provides 70% pain relief and allows for increased functionality per patient intake. Presents on track with prescribed medication. Denies side effects from current medication regimen. No other concerns today. Neck Pain The severity of the problem is moderate. Duration: chronic. The problem has not changed. The frequency of pain is constant. Location of pain is right shoulder. Comments: Shelia cayla resents virtually for follow up and medication refill. C/o chronic neck pain w/ radiation into R shoulder. Pain has been stable over the past month and is rated a 6/10. Notes she has been more active lately which she enjoys.Remains interested in trying to get her SCS approved once she obtains new insurance. It was previously denied by her previous insurance. Medication provides 80% pain relief and allows for increased functionality per patient intake. Presents on track with prescribed medication and notes it has been more effective this month. Denies side effects from current medication regimen. No other concerns today. Neck Pain The severity of the problem is moderate. Duration: chronic. The problem has not changed. Location of pain is right shoulder and right arm. Neck Pain The severity of the problem is moderate. Duration: chronic. The client describes the pain as Aching, Burning, Sharp and Tingling. Aggravating factors include bending, lifting and lying down. Relieving factors include ice, massage, sitting and stretching. Pertinent negatives include bladder incontinence. Comments: Shelia kulkarni resents in clinic for follow up and medication refill. C/o chronic neck pain w/ radiation into R shoulder. Pain has been stable since [facility] and averages a 7/10.Of note, she is still looking for a job that will accommodate her.Notes that she is unsure about how effective her Percocet has been as of late. Patient is agreeable to continue but wants to be sure she is able to switch medications in the future if needed.Remains interested in trying to get her SCS approved once she obtains new insurance. It was previously denied by her previous insurance. Medication provides 50% pain relief and allows for increased functionality per patient intake. Presents on track with prescribed medication. Denies side effects from current medication regimen. No other concerns today. Comments: Shelia kulkarni resents for virtual follow up and medication refill. She continues to c/o chronic neck pain w/ radiation into R shoulder. Pain has been stable since [facility]. 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 Therefore, she is currently waiting to her if she will be starting a new job. 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 Medication provides 50% pain relief and allows for increased functionality per patient intake. Presents on track with prescribed medication. Denies side effects from current medication regimen. No other concerns today. Neck Pain The severity of the problem is 10/10. Duration: chronic. The frequency of pain is constant. Neck Pain The severity of the problem is moderate. Duration: chronic. The status of the symptoms are stable. The frequency of pain is constant. Comments: Shelia kulkarni resents for virtual follow up and medication refill. She continues to c/o chronic neck pain w/ radiation into R shoulder. 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 Presents on track with prescribed medication. Denies side effects from current medication regimen. No other concerns today. Comments: Shelia gamboa shellurns to the clinic today for a FU and medication refill. She continues to c/o chronic neck pain w/ radiation into R shoulder. Pain has been stable since [facility], even w/ increased stress r/t her daughter being assaulted while at college at [employer]. Of note, patient plans to stay with her daughter until she graduates this October.Patient continues to consider applying for MA to help w/ paying for appointments. 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 Patient inquires if she is becoming tolerant to this medication. Presents w/ an appropriate amount of her prescribed medication. Denies side effects from current medication regimen. No other concerns today. Neck Pain The severity of the problem is moderate. Duration: chronic. The problem has not changed. The frequency of pain is constant. Location of pain is BL shoulder, groin, low back and BL arm. The client describes the pain as Aching, Burning, Sharp, Tingling and numbness. Aggravating factors include bending, climbing stairs, lifting, prolonged sitting, running, standing, turning head, housework, movement and walking. The client denies aggravating factors such as lying down. Relieving factors include sitting, stretching, changing positions, chiropractic, heat, TENS, ice, supine, massage, rest, medications, PT and rest. Pertinent negatives include bladder incontinence. Neck Pain The severity of the problem is moderate. Duration: chronic. The status of the symptoms are stable. The frequency of pain is constant. Comments: Shelia kulkarni resents for a virtual follow up and medication refill. Patient c/o chronic neck pain with radiation into her right shoulder. Pain has been stable overall since last visit. Reports occasional flares. Contributes these flares to fluctuating weather.She is still awaiting approval for halfway disability and her accommodations have not been approved. Currently no updates. States this has been stressful. Medication provides 60% relief and allows for increased functionality per patient intake. Presents on track with prescribed medication. Denies side effects from current medication regimen. No other concerns today. Neck Pain The severity of the problem is moderate. Duration: chronic. The status of the symptoms are stable. The frequency of pain is constant. Comments: Shelia kulkarni resents for a virtual follow up and medication refill. Patient c/o chronic neck pain with radiation into her right shoulder. Pain has been stable overall since last visit. 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 Notes that she is being billed OOP for lab work currently. States this has been stressful.Of note, her daughter has Crohn's disease and they are working to get her treatment.Medication provides 65% relief and allows for increased functionality per patient intake. Presents on track with prescribed medication. Denies side effects from current medication regimen. No other concerns today. Comments: Shelia kulkarni resents for a virtual follow up and medication refill. Patient c/o chronic neck pain with radiation into her right shoulder. Pain has been stable since last visit.Medication provides 75% relief and allows for increased functionality per patient intake. Denies side effects from current medication regimen. 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 Notes that she is being billed OOP for lab work currently. No other concerns today. Neck Pain Duration: chroni c. The problem has not changed. The frequency of pain is constant. Location of pain is bilateral posterior neck. The client describes the pain as Aching and Sharp. Aggravating factors include bending, lifting, twisting and working. Relieving factors include heating pad, ice and rest. Comments: Shelia kulkarni resents for a virtual follow up and medication refill. Patient c/o chronic neck pain with radiation into her right shoulder. Pain has been stable since last visit. She recently tested positive for COVID and has been slowly recovering. Medication provides 75% relief and allows for increased functionality per patient intake. 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 Denies side effects from current medication regimen. No other concerns today. Neck Pain The severity of the problem is moderate. Duration: chronic. The problem has not changed. The frequency of pain is constant. Location of pain is bilateral posterior neck and right shoulder. Neck Pain The severity of the problem is moderate. Duration: chronic. The problem has not changed. The frequency of pain is constant. Location of pain is bilateral posterior neck. The client describes the pain as Aching. Aggravating factors include twisting, housework and movement. Relieving factors include heating pad and rest. Comments: Shelia kulkarni resents for virtual follow up and medications refill. Her chronic pain has been stable. C/o neck and R shoulder pain.The patient is staying active with stretching and HEP. Reports current medication regimen provides 75% pain relief, decreasing their pain to a 5/10. Medications allow for increased functionality. Denies side effects from current medication regimen. Work is unable to make certain accommodations for her such as being on her feet too much. She is now looking into a job change or an early prison. No other concerns today. Neck Pain The severity of the problem is 5. The problem has not changed. Location of pain is Neck, R shoulder and R arm. The client describes the pain as Aching, Burning and Throbbing. Aggravating factors include bending, climbing stairs, hyperextension, stress and walking. Relieving factors include narcotic analgesics and rest. Comments: Shelia kulkarni resents for virtual follow up and medications refill.The patient states their chronic pain has been stable. C/o neck and R shoulder pain. She reports increased stabbing pain with colder weather, which is typical for her. The pt continues to be interested in an SCS trial, but notes insurance has denied it. She is still having pressure in her pelvis, and pursuing options regarding a floating kidney surgery. She may need accommodations for work in the future. The patient is staying active with stretching and HEP. Reports current medication regimen provides 75% pain relief, decreasing their pain to a 5/10. Medications allow for increased functionality. Denies side effects from current medication regimen. No other concerns today. Comments: Yasmin sotelo is here for a virtual follow up and medications refill.The patient states their chronic pain has been stable. She is still having pressure in her pelvis. Her shoulder pain has been stable. She reports increased stabbing pain with colder weather, which is typical for her. Reports she may need accommodations for work in the future. The patient is staying active by going to physical therapy, which has been helping. Reports current medication regimen provides 80% pain relief, decreasing their pain to a 5/10. Medications allow for increased functionality. Denies side effects from current medication regimen. No other concerns today. Neck Pain Duration: chroni c. The problem has not changed. The frequency of pain is intermittent. Location of pain is right shoulder, neck and arm. The client describes the pain as Aching, Burning and Throbbing. Aggravating factors include bending, climbing stairs, hyperextension, stress and walking. Relieving factors include narcotic analgesics and rest. Pertinent negatives include bladder incontinence. Comments: Shelia aguirre s here for a follow-up and medication management. She is followed for neck pain with radiation into RUE. 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 Of note, she is not able to continue working at her current job and will be looking for remote work opportunities.Patient presents without medications today. Patient claims she has them at home and plans to send in picture of remaining medications for count.Reports current medication regimen provides moderate pain relief and allows increased functionality. Denies side effects from current medication regimen. No other concerns today. Neck Pain Duration: chroni c. The problem has worsened. The frequency of pain is intermittent. Location of pain is bilateral lateral neck and bilateral posterior neck. The client describes the pain as Aching, Burning and Throbbing. Aggravating factors include bending, climbing stairs, hyperextension, stress and walking. Relieving factors include narcotic analgesics and rest. Pertinent negatives include bladder incontinence. Neck Pain The severity of the problem is moderate. Duration: chronic. The problem has not changed. The frequency of pain is constant. Location of pain is right shoulder, neck and right arm. The client describes the pain as Aching, Burning, Sharp, Tingling and numbness. Aggravating factors include bending, lifting, movement and housework. Relieving factors include heating pad, ice, narcotic analgesics, lying down and chiropractic. Pertinent negatives include bladder incontinence. Comments: Shelia aguirre s here for virtual follow-up and medication management. She is followed for neck pain with radiation into RUE. Pain has been stable this month.Continues to postpone SCS trial, due to insurance issues.Reports current medication regimen provides 75% pain relief and allows increased functionality. Denies side effects from current medication regimen. No other concerns today. Comments: Shelia aguirre s here for virtual follow-up and medication management. She is followed for neck pain with radiation into RUE. Pain has persisted since last OV. States pain has been stable and has remained unchanged in location, quality and character. Denies significant changes or updates since last OV. Continues to want to postpone SCS trial, due to insurance issues.Notes she has been able to be more active this summer.Reports current medication regimen provides 75% pain relief and allows increased functionality. Denies side effects from current medication regimen. Presents with surplus of prescribed medication. No other concerns today. Neck Pain The severity of the problem is mild. Duration: chronic. The problem has not changed. The frequency of pain is constant. The client describes the pain as Aching, Burning and Sharp. Aggravating factors include bending, climbing stairs, lifting, prolonged sitting, standing, twisting, walking, movement and housework. Relieving factors include heating pad, ice, massage, narcotic analgesics, physical therapy, rest, stretching, TENS and changing positions. Pertinent negatives include bladder incontinence. Comments: Shelia aguirre s here for virtual follow-up and medication management. She is followed for neck pain with radiation into RUE. Pain has persisted since last OV. States pain has been stable and has remained unchanged in location, quality and character. Denies significant changes or updates since last OV. Inquires about SCS trial but would like to postpone.Reports current medication regimen provides 85% pain relief and allows increased functionality. Denies side effects from current medication regimen. Presents on track with prescribed medication. No other concerns today. Neck Pain The severity of the problem is moderate. Duration: chronic. The problem has not changed. The frequency of pain is constant. The client describes the pain as Aching, Burning, Sharp, Tingling and numbness. Aggravating factors include bending, climbing stairs, lifting, running, standing, twisting, walking, prolonged positioning, housework and movement. Relieving factors include heating pad, ice, massage, physical therapy, rest, sitting, stretching, TENS, changing positions and chiropractic. Pertinent negatives include bladder incontinence. Neck Pain The severity of the problem is 4/10. Duration: chronic. The problem has not changed. The frequency of pain is constant. Location of pain is right anterior neck and right posterior neck. The client describes the pain as Aching, Burning, Sharp and Tingling. Aggravating factors include bending, climbing stairs, lifting, prolonged sitting, standing, housework, twisting and walking. Relieving factors include heating pad, ice, massage, narcotic analgesics, physical therapy, rest, stretching, changing positions and chiropractor. Comments: Shelia aguirre s here for virtual follow-up and medication management. She is followed for neck pain with radiation into RUE. Pain has persisted since last OV. States pain has been stable and has remained unchanged in location, quality and character. Denies significant changes or updates since last OV. Reports current medication regimen provides 85% pain relief and allows increased functionality. Denies side effects from current medication regimen. No other concerns today. Neck Pain The severity of the problem is 5/10. Duration: chronic. The problem has not changed. The frequency of pain is constant. Location of pain is bilateral posterior neck, bilateral shoulder and bilateral arm. The client describes the pain as Aching, Burning, Sharp, Tingling and numbness. Aggravating factors include bending, climbing stairs, lifting, lying down, prolonged sitting, standing, twisting, walking, movement, housework and prolonged positioning. Relieving factors include heating pad, ice, massage, physical therapy, stretching, chiro and changing positions. Pertinent negatives include bladder incontinence. Comments: Shelia i s here for virtual follow-up and medication management. She is followed for neck pain with radiation into RUE. Pain has persisted since last OV. States pain has been stable and has remained unchanged in location, quality and character. She inquires about the status of her SCS insurance appeal. Denies significant changes or updates since last OV. Reports current medication regimen provides 80% pain relief and allows increased functionality. Denies side effects from current medication regimen. No other concerns today. Neck Pain The severity of the problem is 4/10. Duration: chronic. The problem has not changed. The frequency of pain is constant. Location of pain is right posterior neck, right shoulder and right arm. The patient describes the pain as Aching, Burning, Sharp, Tingling and numbness. Aggravating factors include bending, climbing stairs, lifting, running, standing, twisting, Valsalva, housework, movement and prolonged positioning. Relieving factors include heating pad, ice, massage, physical therapy, rest, stretching, medications and chiropractic. Pertinent negatives include bladder incontinence. Neck Pain (comments) Shelia is her e for virtual follow-up and medication management. She is followed for neck pain with radiation into RUE. States her pain has been relatively stable with intermittent flares. Notes that her pain has been better managed this winter than previous lin. Denies new pain concerns and requests a refill of current medication regimen. Reports current medication regimen provides 80% pain relief and allows increased functionality. Denies side effects from current medication regimen. No other concerns today. Neck Pain The severity of the problem is 4. Duration: chronic. The problem has not changed. The frequency of pain is constant. Location of pain is bilateral posterior neck and bilateral shoulder. The patient describes the pain as Aching, Burning and Sharp. Aggravating factors include bending, climbing stairs, lifting, lying down, prolonged sitting, running, standing, twisting and walking. Relieving factors include heating pad, ice, massage, physical therapy, rest, stretching, meds and changing positions. Pertinent negatives include bladder incontinence. Neck Pain (comments) Shelia is her e for follow-up and medication management. She reports greater than 50% relief with her current regimen. She is followed for chronic neck pain and reports her pain has been stable over the last month. She states her pain has been well managed with medication regimen. Notes that she was able to have a good vacation to [place]. Continues to keep up with her HEP with good benefit.Patient is not accompanied today. No other concerns. Neck Pain The severity of the problem is moderate. Duration: chronic. The problem has not changed. Location of pain is bilateral lateral neck, bilateral posterior neck and bilateral shoulder. The patient describes the pain as Aching and Burning. Aggravating factors include bending, climbing stairs, exertion, flexion, lifting, rotation and standing. Relieving factors include narcotic analgesics and rest. Pertinent negatives include bladder incontinence. Neck Pain (comments) Shleia is her e for follow-up and medication management. She reports greater than 50% relief with her current regimen. She is following up early today requesting an earlier refill as she will be traveling with her to [place].She reports no changes to her neck pain. She is hopeful she will be able to pursue spinal cord stimulation or neck surgery in the near future. Until then she states she has an appreciable benefit with her medication regimen.Continues to keep up with her HEP with good benefit.Patient is not accompanied today. No other concerns. Arm pain Duration: chroni c. Severity level is 4. It occurs constantly and is stable. Location: R arm and neck. The pain is aching, burning, sharp, numbness and tingling. The pain is aggravated by bending, climbing (and descending) stairs, lifting, movement, sitting, walking, standing, movement, housework and prolonged positioning. The pain is relieved by heat, ice, pain/RX meds, rest and stretching. Arm pain (comments) Shelia is here for follow-up and medication refills. She reports no big updates since last OV. She returns with neck and arm pain which has been stable. She is following up early as she will be going out of town and does not want to run out of medications whiles she is traveling. Patient had a consult with Dr. Oli Howell. States they did not make much progress as he did not have her updated imaging, so they were not able to discuss treatment options. Plans to schedule an additional consult once he has received her imaging. Reports current medication regimen provides at least 85% pain relief. Denies side effects from current medication regimen. No other concerns today. Neck pain The severity of the problem is 8/10. Duration: chronic. Location of pain is bilateral posterior neck. There is radiation of pain to the RUE. The patient describes the pain as Burning, Tingling and numbness. Pertinent negatives include bladder incontinence. Neck pain (comments) Shelia is a 6 4 year old female presenting for surgical consult regarding worsening neck pain. Reports neck pain is greater on right side and radiates to right shoulder with pain, numbness and tingling down lateral right arm. Says her right arm pain is worse than her neck pain. Describes neck pain flares as a hot, burning pain. Denies weakness in arms. She is s/p cervical disc replacement in Jun [address] Grier. [facility] SCS trial has been denied by her insurance.Additionally notes some low back pain, but not as bothersome as her neck. Pain is greater on right side. No other concerns today. Arm pain Duration: chroni c. Severity level is 4. It occurs constantly and is stable. Location: neck and R shoulder. The pain is aching, burning, sharp and tingling. The pain is aggravated by bending, climbing (and descending) stairs, lifting, movement, sitting, housework and prolonged positioning. The pain is relieved by heat, ice, massage, pain/RX meds, physical therapy and rest. Arm pain (comments) Shelia is here for follow-up and medication refills. She reports no big updates since last OV. She returns with neck and arm pain which has been stable. Continues to deny new chronic pain concerns and requests a refill of current medication regimen. Patient continues to look forward to consulting with Dr. Oli Howell for SCS, states she accidentally missed her last appointment. Reports current medication regimen provides at least 85% pain relief. Denies side effects from current medication regimen. No other concerns today. Arm pain (comments) Shelia is here for follow-up and medication refills. She reports no big updates since last OV. She returns with neck and arm pain which has been stable. Patient continues to look forward to consulting with Dr. Oli Howell for SCS and other recommendations. Denies new chronic pain concerns and requests a refill of current medication regimen. Reports current medication regimen provides at least 50% pain relief. Denies side effects from current medication regimen. No other concerns today. Arm pain Duration: chroni c. It occurs constantly and is stable. Location: neck. The pain is aching, burning and sharp. The pain is aggravated by bending, lifting and movement. The pain is relieved by pain/RX meds and rest. Arm pain Duration: chroni c. Severity level is 5. It occurs constantly and is stable. Location: right arm. The pain is aching, burning, sharp and tingling. The pain is aggravated by bending, climbing (and descending) stairs, lifting, movement, sitting, walking, standing, twisting, housework and prolonged positioning. The pain is relieved by heat, ice, massage, pain/RX meds, physical therapy, rest, supine and changing positions. Arm pain (comments) Shelia is here for follow-up and medication refills. She reports no big updates since last OV. She returns with neck and arm pain which has been stable. Her most bothersome area is her right arm and the posterior aspect of her neck which radiates inferolaterally to TRICIA trapezius muscles. Patient continues to look forward to consulting with Dr. Oli Howell for SCS and other recommendations. States her updated MRI is scheduled for later today. Reports current medication regimen provides at least 50% pain relief. Denies side effects from current medication regimen. No other concerns today. Arm pain (comments) Shelia is here for follow-up and medication refills. She reports no big updates since last OV. She returns with neck and arm pain which has been stable. Her most bothersome area is her right arm and the posterior aspect of her neck which radiates inferolaterally to TRICIA trapezius muscles. She followed with Dr. Grier at [place] to discuss treatment options and per pt report, she is not a surgical candidate. She was instructed to follow-up in 6 months. Patient is interested in consulting with Dr. Oli Howell for SCS and other interventions. Most of today's visit was spent discussing cervical MRI from 2018. She presents today without medication, due out today. Patient states she took her 6 for the today during the night and this morning. Reports current medication regimen provides at least 50% pain relief. Denies side effects from current medication regimen. No other concerns today. Arm pain Duration: chroni c. Severity level is 5. It occurs constantly and is stable. Location: R arm and neck. The pain is aching, burning, sharp, pulsating and tingling. The pain is aggravated by bending, climbing (and descending) stairs, lifting, movement, sitting, walking, standing, prolonged positioning and housework. The pain is relieved by heat, ice, massage, pain/RX meds, physical therapy, rest, stretching and TENS. Arm pain (comments) Shelia is here for follow-up and medication refills. She reports no big updates since last OV. She returns with neck and arm pain which has been stable. Her most bothersome area is her right arm and the posterior aspect of her neck which radiates inferolaterally to TRICIA trapezii. She will be following up with Dr. Grier at [place] to discuss treatment options. She presents today, due out. Reports current medication regimen provides at least 50% pain relief. Denies side effects from current medication regimen. No other concerns today. Arm pain Duration: chroni c. Severity level is 5. It occurs constantly and is stable. The pain is aching and burning. The pain is aggravated by bending, lifting and movement. The pain is relieved by injection, massage and pain/RX meds. Arm pain Duration: chroni c. Severity level is 4. It occurs constantly and is stable. Location: right Neck. The pain is aching, burning, sharp and tingling. The pain is aggravated by bending, climbing (and descending) stairs, lifting, movement, sitting and standing. The pain is relieved by heat, ice, massage, pain/RX meds, physical therapy, rest, stretching and TENS. Arm pain (comments) Shelia is here for follow-up and medication refills. She reports no big updates since last OV. She returns with neck and arm pain which has been worse. Since last OV, she was switched to Percocet 5-325mg #6/day instead of Belbuca as it made her drowsy. She is happy about this change. Her most bothersome area is her right arm and the posterior aspect of her neck which radiates inferolaterally to TRICIA trapezii. She will be following up with Dr. Grier at [place] to discuss treatment options. She presents short of medications today. At last OV, Belbuca was discontinued d/t ineffectiveness. Reports current medication regimen provides at least 85% pain relief. Denies side effects from current medication regimen. No other concerns today. Arm pain Duration: chroni c. It occurs constantly and is stable. Location: bilateral. The pain is aching, burning and sharp. The pain is aggravated by bending, climbing (and descending) stairs, lifting, movement and walking. The pain is relieved by heat, ice, pain/RX meds and rest. Arm pain (comments) Shelia is here for follow-up and medication refills. She returns with neck and arm pain which has been worse. She will be following up with Dr. Grier at [place] to discuss treatment options. Reports she did not like Belbuca as it made her drowsy. She would like to dispose of them today. She believes percocet is the best option for her pain. She would like to use percocet 5mg six times a day instead of 10mg three times a day. Reports current medication regimen provides at least 50% pain relief. Denies side effects from current medication regimen. No other concerns today. Arm pain Duration: chroni c. It occurs constantly and is stable. Location: bilateral. The pain is aching, burning and sharp. The pain is aggravated by bending, climbing (and descending) stairs, lifting, movement, walking and standing. The pain is relieved by heat, ice, pain/RX meds and rest. Arm pain (comments) Shelia is here for follow-up and medication refills. She returns with neck pain which radiates down her R arm. Pain has been worse. She admits to overusing her medications this month. She explains she would cut her percocet 10/325mg in half and take an extra half pill when she was in severe pain. Patient presents 13 days short on medications. Of note, her Diazepam dose was increased to 2mg twice a day. Notes she had an occular exclusion on 11/02 which increased in anxiety. Expresses her frustrations today regarding her SCS trial which was recently denied. She is open to trialling a long acting medications today as she feels her pain constantly every day.Reports current medication regimen provides at least 50% pain relief. Denies side effects from current medication regimen. Patient is not accompanied. No other concerns today. Arm pain Duration: chroni c. Severity level is 6. It occurs constantly and is stable. Location: left. The pain is aching, burning and sharp. The pain is aggravated by bending, climbing (and descending) stairs, lifting, movement and walking. The pain is relieved by heat, ice, pain/RX meds and rest. Arm pain (comments) Shelia is here for follow-up and medication refills. She returns with neck pain which radiates down her L arm and shoulder. Pain has been worse. She was unable to go on a road trip with her because of her pain. Notes her SCS trial was denied by insurance and she would like to start appeal process. She is open to having a consult with a surgeon. She also is interested in a temporary increase in medication today.Reports current medication regimen provides at least 50% pain relief. Denies side effects from current medication regimen. No other concerns today. cervicalgia Patient is a 55 year old female presenting with complaints of chronic neck pain that has been on going for around 2 years. She notes that she woke up with feeling a pinched nerve in her neck. Since that point, she had numerous procedures and surgeries but has not had resolution of her symptoms. Her symptoms include sharp pain in her neck (primarily right) along with radicular pain, tingling into her right arm. She also notes headaches. Patient notes associated weakness in her arms and hands on really bad days. Her symptoms are increased with sustained positioning and activity. Symptoms are somewhat relieved with lying down, heat, ice, and ROM. She has tried multiple different interventions, including physical therapy . She notes that her current level of discomfort limits everything she is able to do each day and is currently limiting her overall quality of life. She would like to decrease her overall discomfort to allow her to perform her daily, functional activities with less limitation and an improved quality of life. Arm pain (comments) Shelia is here for virtual follow-up and medication refills. She returns with R arm, R shoulder and neck pain which has been relatively stable. She would like to move forward with a cervical SCS trial. She understands she will need to complete psych eval prior to trial. She would like to continue with the current medication regimen as it allows her to complete her ADLs and work. Reports current medication regimen provides at least 50% pain relief. Denies side effects from current medication regimen. No other concerns today. Arm pain Duration: chroni c. It occurs constantly and is stable. Location: right. The pain is aching, burning and sharp. The pain is aggravated by bending, climbing stairs, lifting, movement and walking. The pain is relieved by exercise, heat, ice, massage, pain/RX meds and rest. Arm pain Severity level i s 4. It occurs constantly and is stable. Location: right. The pain is aching, burning and sharp. The pain is aggravated by bending, climbing stairs, lifting and movement. The pain is relieved by heat, ice and rest. Arm pain (comments) Shelia is here for follow-up and medication refills. Ongoing R shoulder and arm pain persists, tolerable with medication. Pain has been stable and improving with the warmer weather. The L side of her neck has been more bothersome. She would be interested in pursuing cervical SCS trial if her pain worsens. She requests a refill of her current medication regimen as it allows her to complete his ADLs. Reports current medication regimen provides at least 50% pain relief. Denies side effects from current medication regimen. No other concerns today. Arm pain (comments) Shelia is here for follow-up and medication refills. She presents with R arm pain, R shoulder pain and neck pain. Overall her pain has been worse. She is hoping when the weather gets better her pain flares will reduce. However if her pain continues to worsen, she is interested in SCS trial. Inquires about an temporary increase in medication. Reports current medication regimen provides at least 50% pain relief. Denies side effects from current medication regimen. No other concerns today. Arm pain Duration: chroni c. Severity level is 7. It occurs constantly and is worsening. Location: right. The pain is aching, burning and sharp. The pain is aggravated by bending, climbing (and descending) stairs, lifting, movement, sitting and standing. The pain is relieved by heat, ice, pain/RX meds and rest. Arm pain (comments) Shelia is here for follow-up and medication refills. She presents with BL arm pain, shoulder pain, and neck pain. Pain has been worse d/t the cold weather and multiple falls this month. She fell twice about two weeks ago after slipping on ice. The soreness in her neck and shoulders have not resolved, even with ice, heat and medications. She continues to research SCS trial. Requests a refill of her current medication regimen. Reports current medication regimen provides at least 50% pain relief. Denies side effects from current medication regimen. No other concerns today. Arm pain It occurs consta ntly and is worsening. Location: bilateral neck and shoulder. The pain is aching and burning. The pain is aggravated by bending, climbing (and descending) stairs, lifting, movement, sitting and standing. The pain is relieved by heat, ice, pain/RX meds and rest. Arm pain (comments) Shelia is here for virtual follow-up and medication refills. She presents with R arm, R shoulder and neck pain which has been stable. She explains the days she takes 2 tablets instead of 1 she is able to be more productive. Requests to continue with the current medication regimen as it allows her to work and complete her ADLs Reports current medication regimen provides at least 50% pain relief. Denies side effects from current medication regimen. No other concerns today. Arm pain Duration: chroni c. Severity level is 5. It occurs constantly and is stable. Location: right. The pain is aching, burning and sharp. The pain is aggravated by bending, climbing (and descending) stairs, lifting, movement and pushing. The pain is relieved by heat, ice, pain/RX meds and rest. Arm pain Duration: chroni c. It occurs constantly and is stable. The pain is aching, burning and sharp. The pain is aggravated by bending, climbing (and descending) stairs, lifting, movement and standing. The pain is relieved by heat, ice, pain/RX meds and rest. Arm pain (comments) Shelia is here for follow-up and medication refills. Ongoing neck and R arm pain persists, tolerable with medication. Pain has been stable with no new pain. She is three tablets short on medication and is unsure how the count is short. She notes she will be more mindful of her medication count for the future. The current medication regimen allows her to keep up with her active family and complete her ADLs. Reports current medication regimen provides at least 50% pain relief. Denies side effects from current medication regimen. No other concerns today. Arm pain Duration: chroni c. It occurs constantly and is stable. Location: R arm, neck and shoulder. The pain is aching and burning. The pain is aggravated by bending and climbing stairs. The pain is relieved by heat, ice, pain/RX meds and rest. Arm pain (comments) Shelia is here for follow-up and medication refills. Ongoing R arm pain persists, tolerable with medication. Pain has been slightly worse this month d/t changes in the weather. She would like to continue with the current medication regimen as it allows her to complete her ADLs without limitations.Reports current medication regimen provides at least 50% pain relief. Denies side effects from current medication regimen. No other concerns today. Arm pain Duration: chroni c. Severity level is 4. It occurs constantly and is stable. Location: right neck and shoulder arm. The pain is aching, burning, sharp and tingling. The pain is aggravated by bending, climbing (and descending) stairs, lifting, movement, pushing, sitting, walking and standing. The pain is relieved by heat, ice, pain/RX meds, rest, changing positions and chiropractics. Arm pain (comments) Shelia is here for follow-up and medication refills. She presents with R sided neck pain which radiates down her R shoulder and R arm. Reports her pain was more stabilized this month. Reports a slight increase in pain with changes in the weather. She would like to continue with current medication regimen. Reports current medication regimen provides at least 50% pain relief. Denies side effects from current medication regimen. No other concerns today. Arm pain (comments) Shelia is here for follow-up and medication refills. She presents with neck pain (R>L). Pain radiates down R shoulder down to elbow. Her pain has been worse this month d/t unmanageable pain. She inquires about a medication adjustment. The current dose does not manage the pain with her high level of physical activity. Notes she does not want a dose that makes her drowsy as she has experienced this in the past.Reports current medication regimen provides at less 50% pain relief. Denies side effects from current medication regimen. No other concerns today. Arm pain Duration: chroni c. Severity level is 6. It occurs constantly and is worsening. Location: neck, R arm and R shoulder. The pain is aching, burning and sharp. The pain is relieved by ice, pain/RX meds, physical therapy, rest, changing positions, lying down and massage. Arm pain (comments) Shelia is here for follow-up and medication refills. She presents with neck, BL shoulder, and arm pain. Neck pain is localized to the upper R side. Pain has been slightly worse this month due to increased activity [place] Would like to continue with the current medication regimen, Reports current medication regimen provides 50% pain relief. Denies side effects from current medication regimen. No other concerns today. Arm pain Duration: chroni c. Severity level is 6. It occurs constantly and is stable. Location: neck, shoulders and arms. The pain is aching, burning, sharp and tingling. The pain is aggravated by bending, climbing (and descending) stairs and housework. The pain is relieved by heat, ice, massage, pain/RX meds, changing positions and chiropractics. Arm pain Duration: chroni c. Severity level is 6. It occurs constantly and is stable. Location: neck and R arm. The pain is aching, burning, sharp, tingling and numbness. The pain is aggravated by bending, lifting, movement, sitting, walking, standing, housework and prolonged positioning. The pain is relieved by pain/RX meds. Arm pain (comments) Patient is h ere for follow-up and medication refills. She presents with neck and RUE pain. Secondary pain is located in the LUE and she believes this is from overcompensating on her left side. Pain is slightly worse this month due to increased activity. She is still receiving adequate relief from medication regimen. Patient continues to be interested in SCS.Reports current medication regimen provides 70% pain relief. Denies side effects from current medication regimen. No other concerns today. Arm pain Duration: chroni c. Severity level is 6. It occurs constantly and is stable. The pain is aching, burning, sharp, numbness and tingling. The pain is aggravated by daily activities. The pain is relieved by heat, ice, massage, pain/RX meds, physical therapy, rest, stretching, changing positions, chiropractic and lying down. Arm pain (comments) Shelia present s for a virtual follow up and medication refill regarding neck and R arm pain. Prescribed medication offers 75% pain relief. Pt endorses insomnia with opioid use. Well managed with Seroquel. Details increased pain over the past month attributed to trying to limit medication use. She still feels comfortable with current dosing. Typical flares to her pain with increased activity and lifting. Continues with regular HEP and working. No further questions or concerns. Arm pain Duration: chroni c. Severity level is 5. It occurs constantly and is stable. Location: right right shoulder. The pain is aching, burning, sharp, tingling and numbness. The pain is aggravated by bending, lifting, movement, sitting, walking, standing, prolonged positioning, housework, running and twisting. The pain is relieved by heat, ice, massage, pain/RX meds, physical therapy, rest, changing positions, chiropractic, stretching and supine. Arm pain (comments) Shelia is meet ing with us today via [facility] for following up and medication refill. Right neck pain with radiation into right arm persists this month, tolerable with medication.Reports current medication regimen provides moderate pain relief and allows for increased functionality. Denies side effects from current medication regimen.No other concerns today. Arm pain (comments) Shelia is here for follow up and medications refill via virtual visit for coronavirus prevention efforts. Reports 75% pain relief with current medication regimen. Denies any side effects from current medication regimen.Shelia is here today for a followup regarding her chronic persistent RUE pain. Reports her pain has worsened as her work load has tripled. Reports her job consists of prolonged sitting, paperwork, and running back and forth between locations, which ultimately have exacerbated her chronic pain complaints. Describes a persistent shooting and tingling pain that radiates from her right shoulder to her elbow. Denies any left upper extremity symptoms. Patient presents short of her medication today. Reviewed [employer] terms with pt; Shelia is aware and understanding of [facility] expectations regarding an accurate pill count or else I will no longer be able to prescribe opioid therapy. Briefly discussed option of an opioid rotation to consider for the future. No other concerns today. Arm pain Duration: chroni c. Severity level is 7. It occurs constantly and is worsening. The pain is aching, burning, sharp and tingling. The pain is aggravated by lifting, movement, sitting, standing, running and prolonged positioning. The pain is relieved by heat, ice, massage, pain/RX meds, physical therapy, rest and chiropractic. Arm pain Duration: chroni c. Severity level is 5. It occurs constantly and is stable. Location: right. The pain is aching, burning, sharp, numbness and tingling. The pain is aggravated by lifting, movement, sitting, walking, standing, prolonged positioning and housework. The pain is relieved by heat, ice, massage, pain/RX meds, physical therapy, rest, stretching, changing positions and lying down. Arm pain (comments) Shelia is here today for a followup and medication refill for persistent RUE pain. Current medication regimen provides 70% pain relief and improves daily function. Denies side effects.Reports her pain has been elevated over the past month which she attributes to weather fluctuations. Pain continues to be tolerable with medication. No further questions or concerns. Arm pain (comments) Shelia is here today for a followup and medication refill for persistent RUE pain. States her pain today is stable, tolerable with medications. Reports she has been remodeling her basement which has caused her some increased pain. She also recently started yoga.Current medication regimen provides moderate relief and improves daily function. Denies side effects from current medication regimen. Reports she may have taken extra medication this month d/t increased pain due to increased activity.Patient is not accompanied today and has no further questions or other concerns. Arm pain Duration: chroni c. Severity level is 5. It occurs constantly and is stable. Location: right. The pain is aching, burning, sharp, numbness and tingling. The pain is aggravated by prolonged positioning, housework, lifting, running, sitting, standing and walking. The pain is relieved by rest, stretching, changing positions, chiropractic, heat, ice, massage, medications and PT. Arm pain (comments) Shelia is here today for a followup and medication refill for persistent RUE pain. Reports her pain today is mostly stable, tolerable with current treatment plan.Current medication regimen provides 50% relief and improves daily function. Denies side effects from current medication regimen. Notices she is taking closer to #2 tablets daily of her Percocet d/t increased pain throughout the day.Reports some improvements in insomnia since starting Seroquel. Takes sparingly prn d/t increased drowsiness during the day after taking the medication the night before. Patient is not accompanied today and has no further questions or other concerns. Arm pain Duration: chroni c. Severity level is 6. It occurs constantly and is stable. Location: right. The pain is aching, burning, sharp and tingling. The pain is aggravated by movement, sitting, walking, standing, prolonged positioning, housework and twisting. The pain is relieved by changing positions, chiropractic, heat, ice, lying down, medications, PT, rest and stretching. Arm pain Duration: chroni c. Severity level is 4. It occurs constantly. The pain is aching, burning, sharp and tingling. The pain is aggravated by bending, lifting, movement, standing, twisting, running and housework. The pain is relieved by changing positions, chiropractic, heat, ice, lying down, massage, medications, rest and stretching. Arm pain (comments) Shelia is here today for a followup and medication refill for ongoing right arm pain. Pain today is mostly stable, tolerable with medications. Current medication regimen provides 50% relief and improves daily function. Reports medication keeps her up at night and inquires about this today. Patient is not accompanied today and has no further questions or other concerns. Arm pain Duration: chroni c. Severity level is 4. It occurs intermittently and is stable. Location: right. The pain is aching, burning, sharp and tingling. The pain is aggravated by lifting, movement, housework, running, standing and twisting. The pain is relieved by heat, ice, pain/RX meds, physical therapy, rest, stretching, changing positions, chiropractic and massage. Arm pain (comments) Shelia is here today for a followup and medication refill for RUE in the setting of cervical radiculopathy.. Pain today is improving with recent increase in her oxycodone dose. Notices greater pain relief and ability to complete ADLs. Would like to continue holding off on SCS w/u at this time. Current medication regimen provides 85% relief and improves daily function. Denies side effects from current medication regimen. Patient is not accompanied today and has no further questions or other concerns. Arm pain (comments) Shelia is here today for a followup and medication refill for RUE in the setting of cervical radiculopathy. Current medication regimen provides 60 relief. Denies side effects from current medication regimen. Reports increased pain over the past couple weeks and inquires about this today. States she has had to take #2 tablets on some days to manage her pain. Patient is not accompanied today and has no further questions or other concerns. Arm pain Duration: chroni c. Severity level is 6. It occurs constantly and is worsening. Location: right. The pain is aching, burning, sharp and tingling. The pain is aggravated by lifting, movement, standing and housework. The pain is relieved by heat, ice, massage, pain/RX meds, physical therapy, rest, stretching, changing positions and chiropractic. Arm pain (comments) Shelia is here today for a followup after initial consult regarding her ongoing UE pain. She is interested in SCS, but would like to continue researching prior to pursuing. She has also given more thought to opioid therapy vs. medical cannabis and she would like to continue pain medication for the time being. Regarding recent UDT results, + for tramadol patient expresses some confusion regarding this today. States she has taken Tramadol in the past, but does not recall taking any Tramadol recently. Patient is not accompanied today and has no further questions or other concerns. Arm pain Duration: chroni c. Severity level is 5. It occurs constantly and is stable. Location: right. The pain is aching, sharp, tingling and numbness. The pain is aggravated by bending, lifting, movement, prolonged positioning, housework, running, sitting, typing and writing. The pain is relieved by heat, ice, massage, pain/RX meds, rest, changing positions, chiropractic and PT. Arm pain (comments) Shelia is here for an initial consult for right upper extremity pain, referred by Dr. Holt at [facility]. Her pain began suddenly after waking up with a kink in her neck. Was Dx with disc herniation and nerve impingement. Completed disc replacement surgery with Dr. Mijares at [facility] in 2018 and this successfully relieved her neck pain, but has not been helpful for her radicular symptoms. Pain starts behind her R shoulder and radiates into her R elbow. Describes syxs of neuropathy including numbness, pins and needles, and occasional sharp pains. Pain is worsened by increased activity. Underwent PT at [facility] in [place], [place] 8291[address] with benefit. Tried NETTIE at [facility]-- not helpful. Reports previous imaging located at [facility] [phone].Has trialed and failed Gabapentin, cyclobenzaprine, and Ibuprofen for additional pain relief. Currently managed on Lyrica 75mg BID, Cymbalta 30mg, and nortriptyline. Lyrica is somewhat helpful, but feels her pain is not well-controlled with current regimen. Has taken oxycodone in the past and this has been most helpful. Was taking 5/325mg oxycodone QD with benefit. Shelia is interested in starting opioid therapy and/or medical cannabis and would like [facility] to assume management of pain care. Arm pain Onset: 2 years a go. Duration: chronic. Severity level is 7. It occurs constantly. Location: right. The pain is burning, numbness and pins and needles. The pain is aggravated by lifting, movement, housework, running, twisting and changing positions. The pain is relieved by heat, ice, massage, pain/RX meds, rest and stretching. Arm pain (comments) Shelia is here for an initial consult for right upper extremity pain, referred by Dr. Holt at . Her pain began suddenly after waking up with a kink in her neck. Was Dx with disc herniation and nerve impingement. Completed disc replacement surgery and this successfully relieved her neck pain, but has not been helpful for her radicular symptoms. Underwent PT at [facility] in [place], [place] 8062[address] with benefit. Tried NETTIE at [facility]-- . Reports previous imaging located at [facility] [phone].Has trialed and failed Gabapentin, cyclobenzaprine, and Ibuprofen for additional pain relief. Currently managed on Lyrica 75mg BID, Cymbalta 30mg, and nortriptyline. Lyrica is somewhat helpful, but feels her pain is not well-controlled with current regimen. Has taken pain medication in the past (ie. oxycodone, hydrocodone) and this has been most helpful. Shelia is interested in starting opioid therapy and/or medical cannabis and would like [facility] to assume management of pain care. Arm pain Onset: 2 years a go. Duration: chronic. Severity level is 7. It occurs constantly. Location: right. The pain is aching, burning, numbness and pins and needles. The pain is aggravated by lifting, movement, housework, running and twisting. The pain is relieved by heat, ice, massage, pain/RX meds, rest and stretching. Functional Status Date Functional Assessmen t No Information Instructions Date Instruction Additional Infor mation No Information Assessments Type Assessment Date No Information Patient Care Teams Name Effective Dates (start - stop) Status Members No Information
--- OUTSIDE RECORDS SUMMARY | 2024-01-05 09:43 | XMS_ITS | Referral Summary ---
Author Organization [facility] Address [address] [place] [address] Care Team Providers Care Access Clinician Name Role Phone Elsewhere, Pcp Primary Care Provider Unavailabl e Source Comments Patient records contain information from all sites at [facility]. For routine questions regarding patient records, call [phone] during business hours, M-F 8:00 AM - 5:00 PM Central Time. Record requests for emergency care only can be directed to [phone] at any time.[facility] Encounters Date Type Department Care Team Description 11/28/2023 2:00 PM CDT - 11/28/2023 11:59 PM CDT Hospital Encounter Department of Radiology in [address] [address] Hudson Boyle Jr., M.D. 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 Never 12/20/2021 Do you belong to any clubs o r organizations such as muslim groups, unions, fraternal or athletic groups, or [...] Answer Date Recorded PHQ-2 Score 2 12/20/2021 [facility] - Occupational Stress [...] place to sleep or slept in a prison (including now)? No 12/20/2021 Nutrition Answer Date [...] 12/14/2021 11:58 AM CDT Plan of Treatment Not on file Procedures Procedure Name Priority Date/Time Associated Diagnosis [...] normal distal ICA in accordance with [place] Symptomatic Carotid Endarterectomy Trial (NASCET). Procedure Note [...] correlation with EKG. Hudson Boyle Jr., M.D. [facility] US PROCEDUR ES * (ABNORMAL) Comprehensive Metabolic [...] Burroughs APRN C.N.PVarinder LAB BLOOD A DD-ON [facility] [address] [place] [address], [facility] [place] [address] [place] [address] * (ABNORMAL) Lipid Panel (12/29/2017) Triglycerides 229(A) 40 - 160 [employer] [facility] NON-INTERFACE D LAB Cholesterol, Total 251(A) 0 - 200 E XTERNAL NON-INTERFACE D LAB Cholesterol, HDL, S 43 35 - 70 EXTERNAL NON-INTERFACE D LAB LDL Cholesterol 162 EXTE RNAL NON-INTERFACE D LAB Blood (Blood, Venous) Ordering Provider External MJorge LAB BLOO D NON ADD-ON EXTERNAL NON-INTERFACED LAB [address] [place] [address] * BI Breast Screening Bilateral (03/07/2016 2:28 PM CDT) Anatomical Region Laterality Modality Breast Bilateral Mammography 03/07/2016 2:28 PM CDT Addenda Addendum by ProviderJared M.D. on 03/07/2016 2:28 PM CDT RAD^^^OW MA Mammo Self Requested w ??[facility] 03/07/2016 14:28:01 [...] - negative screen, dense breasts Yessi Huynh(R), RVarinderTVarinder(R)(M) IMG BI PROCEDURES from Last 3 Months or Most Recently Relevant to Health Maintenance Care Teams Access Clinician Relationship Specialty Start Date End Date Elsewhere, Pcp PCP - General Internal Medicine 09/25/18
--- OUTSIDE RECORDS SUMMARY | 2024-01-05 09:43 | XMS_ITS | Encounter Summary ---
Author Organization [facility] Address [address] [place] [address] Care Team Providers Care Cargoman Name Role Phone Elsewhere, Pcp Primary Care Provider Unavailabl e Reason for Referral * Outpatient (Routine) - Authorized Specialty Diagnoses / Procedures Referred By Yamila sotelo Referred To Contact Ophthalmology Diagnoses n/a Hudson Boyle Jr., M.D. 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 [address] [place] [address] [facility] Region Referral ID Status Reason Start Date Expiration Date Visits Re quested Visits Authorized [id number] Closed 11/27/2023 11/26/2024 1 1 Reason for Visit * Reason Comments Decreased Visual Acuity * Appointment Request (Routine) - Pending Review Specialty Diagnoses / Procedures Referred By Yamila sotelo Referred To Contact Ophthalmology Referral ID Status Reason Start Date Expiration Date V isits Requested Visits Authorized [id number] Pending Review 11/24/2023 11/23/2024 1 1 Encounter Details Date Type Department Care Team (Latest Contact Info) Description 11/27/2023 3:30 PM CDT Office Visit Department of Ophthalmology in [place], [place] [address] [address] Hudson Boyle Jr., M.D. 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 Never 12/20/2021 Do you belong to any clubs o r organizations such as advent groups, unions, fraternal or athletic groups, or [...] Answer Date Recorded PHQ-2 Score 2 12/20/2021 [facility] ional Health - Occupational Stress [...] place to sleep or slept in a residential (including now)? No 12/20/2021 Nutrition Answer Date [...] AM CDT documented as of this encounter Progress Notes * Hudson Boyle Jr., M.D. 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
== END 2024-01-05 09:32 | disposition home or self-care (01) ==
LOC: LKVREF 09:40
PROVIDERS: PCP Family Medicine; Visit Provider Family Medicine
DX: I10 Essential (primary) hypertension (principal)
CPT/HCPCS: 80048